=== PATIENT | female | born 1960 | race Hispanic/Latino ===

== ENCOUNTER 2019-12-04 21:59 | Observation (INO) | payer BC ==
[2019-12-04] MEDS ORDERED: SODIUM CHLORIDE 0.9% 1000 ML 1,000 ML IV ONE (22:27)
--- NOTE | 2019-12-04 22:32 | Emergency Department Report ---
HPI - General Chief Complaint: Syncope Time Seen by Provider: 12/04/19 22:15 - HPI HPI: This is a 59-year-old female who presents to the emergency department via EMS from home with the complaint of passing out just prior to presentation. Patient has been having 2 days of vaginal bleeding that started off very heavy but has slowed down/improved. She does have lower abdominal pain. Patient admits to feeling dizzy/lightheaded prior to passing out. She is unsure whether or not she hit her head but denies any headache. She denies any fever, vision change, slurred speech, numbness or paresthesias. 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 She has not undergone any type of chemotherapy or radiation. Otherwise she has a history of hypertension. She did not take anything, nor was given anything, for her symptoms prior to presentation. ED Review of Systems ROS: Stated complaint: SYNCOPAL EPISODE Other details as noted in HPI Comment: All other systems reviewed and negative Constitutional: weakness. denies: chills, fever Eyes: denies: eye pain, vision change ENT: denies: ear pain, throat pain Respiratory: denies: cough, shortness of breath Cardiovascular: syncope. denies: chest pain, palpitations Gastrointestinal: abdominal pain. denies: vomiting Genitourinary: other (vaginal bleeding). denies: dysuria, discharge Musculoskeletal: denies: back pain, arthralgia Skin: denies: rash, lesions Neurological: other (Syncope). denies: headache Physical Exam - Physical Exam Physical Exam: GENERAL: The patient is ill-appearing. HENT: Normocephalic. Atraumatic. EYES: Extraocular motions are intact. No nystagmus. NECK: Supple. Trachea is midline. CHEST/LUNGS: Clear to auscultation. There is no respiratory distress noted. HEART/CARDIOVASCULAR: Regular. There is mild to moderate tachycardia. There is no murmur. ABDOMEN: Abdomen is soft. Lower abdominal tenderness to palpation. No guarding. Patient has normal bowel sounds. SKIN: Skin is warm and dry. NEURO: The patient is awake, alert, and oriented. The patient is cooperative. The patient has no focal neurologic deficits. Normal speech. Cranial nerves II through XII grossly intact. No facial asymmetry. MUSCULOSKELETAL: There is no tenderness or deformity. There is no limitation range of motion. ED Course - Reevaluation(s) Reevaluation #1: 12/05/19 02:43 Labs 12/04/19 12/04/19 12/04/19 23:40 23:40 23:40 WBC 20.3 H RBC 3.19 L Hgb 7.3 L Hct 23.5 L MCV 74 L MCH 23 L MCHC 31 RDW 24.8 H Plt Count 781 H Lymph % (Auto) 6.1 L [place] % (Auto) 7.7 H Eos % (Auto) 0.0 Baso % (Auto) 0.4 Lymph # (Auto) 1.2 [place] # (Auto) 1.6 H Eos # (Auto) 0.0 Baso # (Auto) 0.1 Seg Neutrophils % 85.8 H Seg Neutrophils # 17.4 H PT 16.7 H INR 1.34 H Sodium 134 L Potassium 4.1 Chloride 95.9 L Carbon Dioxide 22 Anion Gap 20 BUN 23 H Creatinine 1.3 H Estimated GFR 42 BUN/Creatinine Ratio 18 Glucose 124 H Calcium 11.6 H Total Bilirubin 0.20 AST 16 ALT 10 Alkaline Phosphatase 245 H Troponin T Total Protein 7.0 Albumin 2.3 L Albumin/Globulin Ratio 0.5 TSH Plasma/Serum Alcohol Blood Type Antibody Screen Crossmatch 12/04/19 12/04/19 12/04/19 23:40 23:40 23:40 WBC RBC Hgb Hct MCV MCH MCHC RDW Plt Count Lymph % (Auto) [place] % (Auto) Eos % (Auto) Baso % (Auto) Lymph # (Auto) [place] # (Auto) Eos # (Auto) Baso # (Auto) Seg Neutrophils % Seg Neutrophils # PT INR Sodium Potassium Chloride Carbon Dioxide Anion Gap BUN Creatinine Estimated GFR BUN/Creatinine Ratio Glucose Calcium Total Bilirubin AST ALT Alkaline Phosphatase Troponin T < 0.010 Total Protein Albumin Albumin/Globulin Ratio TSH 0.490 Plasma/Serum Alcohol Blood Type O POSITIVE Antibody Screen Negative Crossmatch See Detail 12/04/19 23:40 WBC RBC Hgb Hct MCV MCH MCHC RDW Plt Count Lymph % (Auto) [place] % (Auto) Eos % (Auto) Baso % (Auto) Lymph # (Auto) [place] # (Auto) Eos # (Auto) Baso # (Auto) Seg Neutrophils % Seg Neutrophils # PT INR Sodium Potassium Chloride Carbon Dioxide Anion Gap BUN Creatinine Estimated GFR BUN/Creatinine Ratio Glucose Calcium Total Bilirubin AST ALT Alkaline Phosphatase Troponin T Total Protein Albumin Albumin/Globulin Ratio TSH Plasma/Serum Alcohol < 0.01 Blood Type Antibody Screen Crossmatch Reevaluation #2: 12/05/19 02:43 Vital Signs 12/04/19 12/04/19 12/05/19 22:10 23:30 00:00 Temperature 98.6 F Pulse Rate 103 H Respiratory 16 Rate Blood Pressure 117/90 124/92 Blood Pressure 103/80 [Left] O2 Sat by Pulse 98 98 Oximetry 12/05/19 12/05/19 12/05/19 00:30 01:00 02:05 Temperature Pulse Rate 125 H Respiratory 14 Rate Blood Pressure 116/90 120/89 Blood Pressure 109/74 [Left] O2 Sat by Pulse 99 99 98 Oximetry - EJ/Peripheral Line Arm R Time Out Performed: Yes Indications: nurses unable to establis Skin Cleansed in Sterile Fashion: Yes Size: 20 Dressing Placed: Tegaderm, tape Patient Tolerated Procedure: well ED Medical Decision Making - Lab Data Result diagrams: 12/04/19 23:40 12/04/19 23:40 - EKG Data -: EKG Interpreted by Sd EKG shows normal: sinus rhythm, axis, intervals, QRS complexes, ST-T waves Rate: tachycardia (123 bpm) - EKG Data When compared to previous EKG there are: previous EKG unavailable Interpretation: other (Sinus tachycardia at 123 bpm, normal axis, normal intervals. No ST elevation [place]) - Radiology Data Radiology results: report reviewed CT HEAD/BRAIN WO CON INDICATION / CLINICAL INFORMATION: Syncopal episode, lightheaded and dizziness. Hx of SENIOR NET ENGINEER cancer. TECHNIQUE: All CT scans at this location are performed using CT dose reduction for ALARA by means of automated exposure control. COMPARISON: None available. FINDINGS: There is mild generalized cortical atrophy. The ventricular system is normal in size and configuration. No focal lesion or mass effect is seen. There is no evidence of intracranial hemorrhage or major vessel occlusion. The calvarium is intact. The visualized paranasal sinuses and mastoid air cells are near. IMPRESSION: No acute abnormality. CT OF THE ABDOMEN AND PELVIS WITHOUT CONTRAST INDICATION / CLINICAL INFORMATION: Abdominal pain with vaginal bleeding. Patient states that she was diagnosed with uterine cancer and possible metastatic disease to the liver 3 months ago. TECHNIQUE: All CT scans at this location are performed using CT dose reduction for ALARA by means of automated exposure control. COMPARISON: 09/27/19. FINDINGS: ABDOMEN: There are multiple low density lesions scattered throughout the liver which have increased in size and number since the prior study. A 4.5 cm lesion in the inferior aspect of the right lobe of the liver is new. The gallbladder is surgically absent. The bile ducts, pancreas, spleen and adrenal glands are normal. There are multiple nonobstructive renal calculi bilaterally. There is a small hiatal hernia. I see no evidence of bowel obstruction, wall thickening or free air. There is no evidence of adenopathy. The lung bases are clear. PELVIS: The uterus is abnormal in appearance and contains one or more complex fat-containing masses which appear significantly larger than on the prior exam. The abnormality measures approximately 11 cm on the current study compared to 8.5 cm previously. There is no evidence of adnexal mass or free fluid. A normal appendix is present. There are scattered colonic diverticula without acute inflammation. I do not identify a hernia. There is mild spondylosis without osseous metastatic disease. IMPRESSION: 1. 1 or more confluent fat-containing masses in the uterus have increased in size and are suspicious for liposarcoma. 2. Metastatic disease involving the liver has increased. 3. Bilateral nonobstructive nephrolithiasis. - Medical Decision Making This patient presents to the emergency department after having a syncopal episode just prior to arrival. The patient is orthostatic positive from laying to sitting and was unable to stand up for full orthostatic vital signs. EKG shows sinus tachycardia but otherwise no ST elevation [place] or dysrhythmia. Patient's labs shows hemoglobin of 7.3, some renal insufficiency with a GFR of about 40, and a leukocytosis of about 20,000. Patient was given a liter of IV fluid, IV analgesia, and IV antiemetics. CT scan of the head does not show any bleed, shift, mass, ischemia, or any other acute process. CT scan of the a bdomen and pelvis shows some uterine masses, liver mass that is suspicious for metastatic disease. After a discussion with the hospitalist, the patient will be transfused 1 unit of packed red blood cells for symptomatic anemia. She has been accepted for admission by Dr Collier. Critical Care Time: Yes Critical care time in (mins) excluding proc time.: 35 Critical care attestation.: If time is entered above; I have spent that time in minutes in the direct care of this critically ill patient, excluding procedure time. Critical care time was spent on this patient in doing her initial evaluation, multiple reevaluation s, ordering and interpretation of labs and imaging, IV fluid resuscitation for her dehydration/volume depletion, ordering of packed red blood cells for transfusion, IV analgesia, multiple discussions with the patient. Critical Care Time: 35 minutes ED Disposition Clinical Impression: Symptomatic anemia, Liver metastasis, NIMCO (acute kidney injury), Dehydration Uterine cancer Qualifiers: Malignant neoplasm of uterus location: unspecified site of uterus Qualified Code(s): C55 - Malignant neoplasm of uterus, part unspecified Syncope Qualifiers: Syncope type: unspecified Qualified Code(s): R55 - Syncope and collapse Disposition: 09 OP ADMIT IP TO THIS HOSP Is pt being admited?: Yes Condition: Serious Time of Disposition: 02:11
--- NOTE | 2019-12-05 | XRay Report ---
ACUTE ABDOMINAL SERIES INDICATION / CLINICAL INFORMATION: Abdominal pain. COMPARISON: None available. FINDINGS: Upright and supine views of the abdomen demonstrate a prior cholecystectomy. There are bilateral clarisse l calculi. The bowel gas pattern is normal without evidence of obstruction, free air or mass effect. There is mild thoracolumbar scoliosis and spondylosis. The accompanying chest radiograph demonstrates a normal heart size and clear lungs. IMPRESSION: Bilateral nephrolithiasis. Signer Name: Darek Mai MD Signed: 12/04/2019 11:56 PM Workstation Name: [id number]
[2019-12-05 00:06] LABS: Hematocrit 23.5 % (30.3-42.9); Hemoglobin 7.3 gm/dl (10.1-14.3); Mean Corpuscular HGB Conc 31 % (30-34); Mean Corpuscular Volume 74 fl (79-97); Platelet Count 781 K/mm3 (140-440); Red Blood Count 3.19 M/mm3 (3.65-5.03)
[2019-12-05 00:18] LABS: Basophils # (Auto) 0.1 K/mm3 (0.0-0.1); Basophils % (Auto) 0.4 % (0.0-1.8); Lymphocytes # (Auto) 1.2 K/mm3 (1.2-5.4); Lymphocytes % (Auto) 6.1 % (13.4-35.0); Monocytes # (Auto) 1.6 K/mm3 (0.0-0.8); Monocytes % (Auto) 7.7 % (0.0-7.3); Red Cell Distribution Width 24.8 % (13.2-15.2)
[2019-12-05 00:22] LABS: INR 1.34 (0.87-1.13)
[2019-12-05 00:28] LABS: Albumin 2.3 g/dL (3.9-5); Calcium 11.6 mg/dL (8.4-10.2)
[2019-12-05] MEDS ORDERED: ONDANSETRON 4 MG/2 ML INJ IV ONE (00:42)
[2019-12-05] MEDS ORDERED: fentaNYL 100 MCG/2 ML INJ IV ONE (00:43)
--- NOTE | 2019-12-05 01:41 | Cat Scan Report ---
CT HEAD/BRAIN WO CON INDICATION / CLINICAL INFORMATION: Syncopal episode, lightheaded and dizziness. 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 TECHNIQUE: All CT scans at this location are performed using CT dose reduction for ALARA by means of automated e xposure control. COMPARISON: None available. FINDINGS: There is mild generalized cortical atrophy. The ventricular system is normal in size and configuratio n. No focal lesion or mass effect is seen. There is no evidence of intracranial hemorrhage or major v essel occlusion. The calvarium is intact. The visualized paranasal sinuses and mastoid air cells are near. IMPRESSION: No acute abnormality. Signer Name: Darek Mai MD Signed: 12/05/2019 1:37 AM Workstation Name: [id number]
--- NOTE | 2019-12-05 01:56 | Cat Scan Report ---
CT OF THE ABDOMEN AND PELVIS WITHOUT CONTRAST INDICATION / CLINICAL INFORMATION: Abdominal pain with vaginal bleeding. Patient states that she was diagnosed with uterine cancer and p ossible metastatic disease to the liver 3 months ago. TECHNIQUE: All CT scans at this location are performed using CT dose reduction for ALARA by means of automated e xposure control. COMPARISON: 09/27/19. FINDINGS: ABDOMEN: There are multiple low density lesions scattered throughout the liver which have increased i n size and number since the prior study. A 4.5 cm lesion in the inferior aspect of the right lobe of the liver is new. The gallbladder is surgically absent. The bile ducts, pancreas, spleen and adrenal glands are normal. There are multiple nonobstructive renal calculi bilaterally. There is a small hiat al hernia. I see no evidence of bowel obstruction, wall thickening or free air. There is no evidence of adenopathy. The lung bases are clear. PELVIS: The uterus is abnormal in appearance and contains one or more complex fat-containing masses w hich appear significantly larger than on the prior exam. The abnormality measures approximately 11 cm on the current study compared to 8.5 cm previously. There is no evidence of adnexal mass or free flu id. A normal appendix is present. There are scattered colonic diverticula without acute inflammation. I do not identify a hernia. There is mild spondylosis without osseous metastatic disease. IMPRESSION: 1. 1 or more confluent fat-containing masses in the uterus have increased in size and are suspicious for liposarcoma. 2. Metastatic disease involving the liver has increased. 3. Bilateral nonobstructive nephrolithiasis. Signer Name: Darek Mai MD Signed: 12/05/2019 1:51 AM Workstation Name: [id number]
[2019-12-05] MEDS ORDERED: SODIUM CHLORIDE 0.9% 1000 ML 1,000 ML IV ONE (02:00)
[2019-12-05] MEDS ORDERED: SODIUM CHLORIDE 0.9% 500 ML 500 ML IV ONE (02:10)
[2019-12-05] MEDS ORDERED: ACETAMINOPHEN 325 MG TAB PO PRN (02:44)
[2019-12-05] MEDS ORDERED: MAGNESIUM HYDROXIDE (MOM) ORAL LIQD UDC PO PRN (02:44)
--- NOTE | 2019-12-05 02:56 | History and Physical Report ---
History of Present Illness Date of examination: 12/05/19 Date of admission: 12/05/19 02:12 Chief complaint: Syncope History of present illness: 59-year-old female with significant past medical history of hypertension and recently diagnosed uterine cancer brought into the emergency room today via EMS after having a syncopal episode. Patient indicates that she has been having vaginal bleeding for the past 2 days. Bleeding has been heavy and occasionally has some blood clots. She has had some associated lower abdominal pain. She denies any fever or chills, no chest pain or shortness of breath, no nausea vomiting, no diarrhea. She however has been having some lightheadedness prior to having the syncopal episode. She denies any head injury and denies any headache. Patient was diagnosed with uterine cancer about a month ago and she is due for follow-up with oncologist at [facility]. She has not had any chemotherapy or radiation therapy. Work-up in the emergency room today reveals a hemoglobin of 7.3, she is also found to be dehydrated, leukocytosis of 20. CT of the abdomen and pelvis reveals:. 1 or more confluent fat-containing masses in the uterus have increased in size and are suspicious for liposarcoma. 2. Metastatic disease involving the liver has increased. 3. Bilateral nonobstructive nephrolithiasis. Patient has been admitted for symptomatic anemia, NIMCO and UTI. Past History Past Medical History: hypertension, other (Uterine ca.) Past Surgical History: No surgical history Social history: no significant social history Family history: no significant family history Medications and Allergies Allergies Allergy/AdvReac Type Severity Reaction Status Date / Time Sulfa (Sulfonamide Allergy Itching Verified 12/04/19 22:59 Antibiotics) Home Medications Medication Instructions Recorded Confirmed Last Taken Type Metoprolol [Lopressor] 25 mg PO BID 12/05/19 12/05/19 12/04/19 History Ondansetron (Nf) [Zofran TAB] 8 mg PO DAILY PRN 12/05/19 12/05/19 12/04/19 History Oxycodone HCl [oxyCODONE] 10 mg PO Q8H PRN 12/05/19 12/05/19 12/04/19 History Active Meds: Active Medications Acetaminophen (Tylenol) 650 mg PO Q4H PRN PRN Reason: Pain MILD(1-3)/Fever >100.5/GOULD Sodium Chloride (Nacl 0.9% 1000 Ml) 1,000 mls @ 250 mls/hr IV ONCE ONE Stop: 12/05/19 05:59 Last Admin: 12/05/19 02:15 Dose: 250 mls/hr Documented by: Sodium Chloride (Nacl 0.9% 1000 Ml) 1,000 mls @ 75 mls/hr IV DIRECT WILLY Magnesium Hydroxide (Milk Of Magnesia) 30 ml PO Q4H PRN PRN Reason: Constipation Ondansetron HCl (Zofran) 4 mg IV Q8H PRN PRN Reason: Nausea And Vomiting Sodium Chloride (Sodium Chloride Flush Syringe 10 Ml) 10 ml IV BID WILLY Sodium Chloride (Sodium Chloride Flush Syringe 10 Ml) 10 ml IV PRN PRN PRN Reason: LINE FLUSH Review of Systems Constitutional: no fever, no chills Ears, nose, mouth and throat: no nasal congestion, no sore throat Cardiovascular: no chest pain, no palpitations Respiratory: no cough, no shortness of breath Gastrointestinal: abdominal pain, no nausea, no vomiting, no diarrhea Genitourinary Female: no pelvic pain, no flank pain, no dysuria Musculoskeletal: no neck pain, no low back pain Integumentary: no rash, no pruritis Neurological: syncope, no headaches, no confusion Psychiatric: no anxiety, no depression Exam - Constitutional Vitals: Temp Pulse Resp BP Pulse Ox 98.6 F 125 H 14 109/74 98 12/04/19 22:10 12/05/19 02:05 12/05/19 02:05 12/05/19 02:05 12/05/19 02:05 General appearance: Present: no acute distress, well-nourished, other (Moderate pallor) - EENT Eyes: Present: PERRL, EOM intact. Absent: scleral icterus ENT: hearing intact, clear oral mucosa, dentition normal - Neck Neck: Present: supple, normal ROM - Respiratory Respiratory effort: normal Respiratory: bilateral: CTA - Cardiovascular Rhythm: regular Heart Sounds: Present: S1 & S2. Absent: gallop, systolic murmur, diastolic murmur, rub - Extremities Extremities: no ischemia, pulses intact, pulses symmetrical, No edema, Full ROM Peripheral Pulses: within normal limits - Abdominal General gastrointestinal: Present: soft, non-tender, non-distended, normal bowel sounds - Integumentary Integumentary: Present: clear, warm, dry - Musculoskeletal Musculoskeletal: strength equal bilaterally - Psychiatric Psychiatric: appropriate mood/affect, intact judgment & insight, memory intact, cooperative - Neurologic Neurologic: CNII-XII intact, no focal deficits, moves all extremities HEART Score - HEART Score Troponin: Troponin T < 0.010 ng/mL (0.00-0.029) 12/04/19 23:40 Results - Labs CBC & Chem 7: 12/04/19 23:40 12/04/19 23:40 Labs: Abnormal lab results 12/04/19 12/04/19 12/04/19 Range/Units 23:40 23:40 23:40 WBC 20.3 H (4.5-11.0) K/mm3 RBC 3.19 L (3.65-5.03) M/mm3 Hgb 7.3 L (10.1-14.3) gm/dl Hct 23.5 L (30.3-42.9) % MCV 74 L (79-97) fl MCH 23 L (28-32) pg RDW 24.8 H (13.2-15.2) % Plt Count 781 H (140-440) K/mm3 Lymph % (Auto) 6.1 L (13.4-35.0) % [place] % (Auto) 7.7 H (0.0-7.3) % [place] # (Auto) 1.6 H (0.0-0.8) K/mm3 Seg Neutrophils % 85.8 H (40.0-70.0) % Seg Neutrophils # 17.4 H (1.8-7.7) K/mm3 PT 16.7 H (12.2-14.9) Sec. INR 1.34 H (0.87-1.13) Sodium 134 L (137-145) mmol/L Chloride 95.9 L (98-107) mmol/L BUN 23 H (7-17) mg/dL Creatinine 1.3 H (0.6-1.2) mg/dL Glucose 124 H (65-100) mg/dL Calcium 11.6 H (8.4-10.2) mg/dL Alkaline Phosphatase 245 H (35-129) units/L Albumin 2.3 L (3.9-5) g/dL Crossmatch 12/04/19 Range/Units 23:40 WBC (4.5-11.0) K/mm3 RBC (3.65-5.03) M/mm3 Hgb (10.1-14.3) gm/dl Hct (30.3-42.9) % MCV (79-97) fl MCH (28-32) pg RDW (13.2-15.2) % Plt Count (140-440) K/mm3 Lymph % (Auto) (13.4-35.0) % [place] % (Auto) (0.0-7.3) % [place] # (Auto) (0.0-0.8) K/mm3 Seg Neutrophils % (40.0-70.0) % Seg Neutrophils # (1.8-7.7) K/mm3 PT (12.2-14.9) Sec. INR (0.87-1.13) Sodium (137-145) mmol/L Chloride (98-107) mmol/L BUN (7-17) mg/dL Creatinine (0.6-1.2) mg/dL Glucose (65-100) mg/dL Calcium (8.4-10.2) mg/dL Alkaline Phosphatase (35-129) units/L Albumin (3.9-5) g/dL Crossmatch See Detail Assessment and Plan - Patient Problems (1) Syncope Current Visit: Yes Status: Acute Qualifiers: Syncope type: unspecified Qualified Code(s): R55 - Syncope and collapse Plan to address problem: Possibly secondary to the anemia. Will monitor vital signs closely. Patient was orthostatic in the emergency room. (2) Symptomatic anemia Current Visit: Yes Status: Acute Plan to address problem: Patient will be transfused with packed red blood cells as needed. Will monitor CBC. (3) Dehydration Current Visit: Yes Status: Acute Plan to address problem: Patient placed on IV fluid. Will monitor BUN and creatinine. (4) Uterine cancer Current Visit: Yes Status: Acute Qualifiers: Malignant neoplasm of uterus location: unspecified site of uterus Qualified Code(s): C55 - Malignant neoplasm of uterus, part unspecified Plan to address problem: We will place consult to VICE PRESIDENT [employer]ELOPMENT and will encourage patient to follow-up with oncology. (5) UTI (urinary tract infection) Current Visit: Yes Status: Acute Plan to address problem: Patient placed on empiric IV antibiotics. We await urine culture results. (6) DVT prophylaxis Current Visit: Yes Status: Acute Plan to address problem: Patient placed on sequential compression device. (7) Full code status Current Visit: Yes Status: Acute
[2019-12-05] MEDS: SODIUM CHLORIDE 0.9% 1000 ML 1,000 ML IV SCH ×2 (04:38→22:01)
[2019-12-05] MEDS: MORPHINE 2 MG/1 ML INJ IV PRN ×2 (04:38→09:01)
[2019-12-05] MEDS ORDERED: SODIUM CHLORIDE 0.9% 500 ML 500 ML ONE ×2 (05:11→05:27)
[2019-12-05 06:22] LABS: Bacteria,Urine 2+ /HPF (Negative); Bilirubin,Urine NEG (Negative); Blood,Urine LG (Negative); Color,Urine Amber (Yellow); Mucus,Urine 3+ /HPF
[2019-12-05 06:23] LABS: Protein,Urine >500 mg/dL (Negative); RBC,Urine > 182.0 /HPF (0.0-6.0)
[2019-12-05 06:25] LABS: Amphetamine Screen,Urine Negative; Benzodiazepines Screen,Urine Negative; Cannabinoid Screen,Urine Negative; Cocaine Screen,Urine Negative; Methadone Screen,Urine Negative
[2019-12-05 06:41] LABS: Opiate Screen,Urine Positive
[2019-12-05] MEDS: ONDANSETRON 4 MG/2 ML INJ IV PRN (09:01)
[2019-12-05] MEDS: cefTRIAXone/NS 1 GM/50 ML 1 GM/50 ML BAG IV SCH (09:02)
--- NOTE | 2019-12-05 10:18 | Progress Note ---
Assessment and Plan Assessment and plan: -- Syncope/autonomic instability Current Visit: Yes Status: Acute Plan to address problem: Possibly secondary to the anemia. Underlying disease process ,fall precautions Physical therapy as needed --Symptomatic anemia. Hb Current Visit: Yes Status: Acute Plan to address problem: Received 1 unit of PRBC transfusion Closely monitor H&H additional transfusion as needed --Dehydration Current Visit: Yes Status: Acute Plan to address problem: IV fluids and supportive care -- Uterine cancer Current Visit: Yes Status: Acute Plan to address problem: THERAPEUTIC MENTOR consulted, follow evaluation and recommendations --UTI (urinary tract infection) Current Visit: Yes Status: Acute Plan to address problem: Patient placed on empiric IV antibiotics. Follow cultures adjust antibiotics as needed --Severe protein calorie malnutrition; Current Visit: Yes Status: Acute . Plan to address problem: Secondary to underlying disease process Nutrition supplements and supportive care --DVT prophylaxis Current Visit: Yes Status: Acute Plan to address problem: SCDs, Lovenox -- Full code status Current Visit: Yes Status: Acute Closely monitor the patient and adjust management as needed Plan of care reviewed with the patient and her nurse History Interval history: I seen and examined the patient at the bedside this morning Patient's chart and medications reviewed Patient is chronically ill looking cachectic in mild distress Vital signs noted Hospitalist Physical - Constitutional Vitals: Temp Pulse Resp BP Pulse Ox 99.9 F H 113 H 20 122/77 94 12/05/19 08:12 12/05/19 08:55 12/05/19 10:03 12/05/19 08:55 12/05/19 08:13 General appearance: Present: mild distress, cachectic - EENT Eyes: Present: PERRL, EOM intact - Neck Neck: Present: supple, normal ROM - Respiratory Respiratory effort: normal Respiratory: bilateral: diminished, negative: rales, rhonchi, wheezing - Cardiovascular Rhythm: regular Heart Sounds: Present: S1 & S2 - Extremities Extremities: no ischemia, No edema - Abdominal General gastrointestinal: soft, non-tender, non-distended, normal bowel sounds - Integumentary Integumentary: Present: clear, warm - Psychiatric Psychiatric: appropriate mood/affect, cooperative - Neurologic Neurologic: moves all extremities HEART Score - HEART Score Troponin: Troponin T < 0.010 ng/mL (0.00-0.029) 12/04/19 23:40 Results - Labs CBC & Chem 7: 12/04/19 23:40 12/04/19 23:40 Labs: Laboratory Last Values WBC 20.3 K/mm3 (4.5-11.0) H 12/04/19 23:40 RBC 3.19 M/mm3 (3.65-5.03) L 12/04/19 23:40 Hgb 7.3 gm/dl (10.1-14.3) L 12/04/19 23:40 Hct 23.5 % (30.3-42.9) L 12/04/19 23:40 MCV 74 fl (79-97) L 12/04/19 23:40 MCH 23 pg (28-32) L 12/04/19 23:40 MCHC 31 % (30-34) 12/04/19 23:40 RDW 24.8 % (13.2-15.2) H 12/04/19 23:40 Plt Count 781 K/mm3 (140-440) H 12/04/19 23:40 Lymph % (Auto) 6.1 % (13.4-35.0) L 12/04/19 23:40 [place] % (Auto) 7.7 % (0.0-7.3) H 12/04/19 23:40 Eos % (Auto) 0.0 % (0.0-4.3) 12/04/19 23:40 Baso % (Auto) 0.4 % (0.0-1.8) 12/04/19 23:40 Lymph # (Auto) 1.2 K/mm3 (1.2-5.4) 12/04/19 23:40 [place] # (Auto) 1.6 K/mm3 (0.0-0.8) H 12/04/19 23:40 Eos # (Auto) 0.0 K/mm3 (0.0-0.4) 12/04/19 23:40 Baso # (Auto) 0.1 K/mm3 (0.0-0.1) 12/04/19 23:40 Seg Neutrophils % 85.8 % (40.0-70.0) H 12/04/19 23:40 Seg Neutrophils # 17.4 K/mm3 (1.8-7.7) H 12/04/19 23:40 PT 16.7 Sec. (12.2-14.9) H 12/04/19 23:40 INR 1.34 (0.87-1.13) H 12/04/19 23:40 Sodium 134 mmol/L (137-145) L 12/04/19 23:40 Potassium 4.1 mmol/L (3.6-5.0) 12/04/19 23:40 Chloride 95.9 mmol/L (98-107) L 12/04/19 23:40 Carbon Dioxide 22 mmol/L (22-30) 12/04/19 23:40 Anion Gap 20 mmol/L 12/04/19 23:40 BUN 23 mg/dL (7-17) H 12/04/19 23:40 Creatinine 1.3 mg/dL (0.6-1.2) H 12/04/19 23:40 Estimated GFR 42 ml/min 12/04/19 23:40 BUN/Creatinine Ratio 18 % 12/04/19 23:40 Glucose 124 mg/dL (65-100) H 12/04/19 23:40 Calcium 11.6 mg/dL (8.4-10.2) H 12/04/19 23:40 Total Bilirubin 0.20 mg/dL (0.1-1.2) 12/04/19 23:40 AST 16 units/L (5-40) 12/04/19 23:40 ALT 10 units/L (7-56) 12/04/19 23:40 Alkaline Phosphatase 245 units/L (35-129) H 12/04/19 23:40 Troponin T < 0.010 ng/mL (0.00-0.029) 12/04/19 23:40 Total Protein 7.0 g/dL (6.3-8.2) 12/04/19 23:40 Albumin 2.3 g/dL (3.9-5) L 12/04/19 23:40 Albumin/Globulin Ratio 0.5 % 12/04/19 23:40 TSH 0.490 mlU/mL (0.270-4.200) 12/04/19 23:40 Urine Color Jami (Yellow) 12/04/19 Unknown Urine Turbidity Cloudy (Clear) 12/04/19 Unknown Urine pH 5.0 (5.0-7.0) 12/04/19 Unknown Ur Specific [place] 1.022 (1.003-1.030) 12/04/19 Unknown Urine Protein >500 mg/dL (Negative) 12/04/19 Unknown Urine Glucose (UA) Neg mg/dL (Negative) 12/04/19 Unknown Urine Ketones Neg mg/dL (Negative) 12/04/19 Unknown Urine Blood Lg (Negative) 12/04/19 Unknown Urine Nitrite Neg (Negative) 12/04/19 Unknown Urine Bilirubin Neg (Negative) 12/04/19 Unknown Urine Urobilinogen 2.0 mg/dL (<2.0) 12/04/19 Unknown Ur Leukocyte Esterase Tr (Negative) 12/04/19 Unknown Urine WBC (Auto) 182.0 /HPF (0.0-6.0) H 12/04/19 Unknown Urine RBC (Auto) > 182.0 /HPF (0.0-6.0) 12/04/19 Unknown Urine Bacteria (Auto) 2+ /HPF (Negative) 12/04/19 Unknown Urine WBC Clumps 2+ /HPF 12/04/19 Unknown Urine Mucus 3+ /HPF 12/04/19 Unknown Urine Opiates Screen Positive 12/04/19 Unknown Urine Methadone Screen Negative 12/04/19 Unknown Ur Barbiturates Screen Negative 12/04/19 Unknown Ur Phencyclidine Scrn Negative 12/04/19 Unknown Ur Amphetamines Screen Negative 12/04/19 Unknown U Benzodiazepines Scrn Negative 12/04/19 Unknown Urine Cocaine Screen Negative 12/04/19 Unknown U Marijuana (THC) Screen Negative 12/04/19 Unknown Drugs of Abuse Note Disclamer 12/04/19 Unknown Plasma/Serum Alcohol < 0.01 % (0-0.07) 12/04/19 23:40 Blood Type O POSITIVE 12/04/19 23:40 Antibody Screen Negative 12/04/19 23:40 Crossmatch See Detail 12/04/19 23:40 Elder/IV: Voiding Method Bedpan IV Catheter Type [Left Wrist] INT / Saline Lock IV Catheter Type [Right Upper INT / Saline Lock arm] Active Medications - Current Medications Current Medications: Generic Name Dose Route Start Last Admin Trade Name Freq PRN Reason Stop Dose Admin Acetaminophen 650 mg 12/05/19 02:44 Tylenol PO Q4H PRN Pain MILD(1-3)/Fever >100.5/GOULD Sodium Chloride 1,000 mls @ 75 mls/hr 12/05/19 02:45 12/05/19 04:38 Nacl 0.9% 1000 Ml IV 75 mls/hr DIRECT WILLY Administration Ceftriaxone Sodium 1 gm in 50 mls @ 100 mls/hr 12/05/19 10:00 12/05/19 09:02 Rocephin/Ns 1 Gm/50 Ml IV 100 mls/hr Q24HR WILLY Administration Protocol Magnesium Hydroxide 30 ml 12/05/19 02:44 Milk Of Magnesia PO Q4H PRN Constipation Morphine Sulfate 2 mg 12/05/19 04:08 12/05/19 09:01 Morphine IV 2 mg Q4H PRN Administration Pain, Moderate (4-6) Ondansetron HCl 4 mg 12/05/19 02:44 12/05/19 09:01 Zofran IV 4 mg Q8H PRN Administration Nausea And Vomiting Sodium Chloride 10 ml 12/05/19 10:00 12/05/19 09:02 Sodium Chloride Flush Syringe 10 Ml IV 10 ml BID WILLY Administration Sodium Chloride 10 ml 12/05/19 02:44 Sodium Chloride Flush Syringe 10 Ml IV PRN PRN LINE FLUSH
[2019-12-05] MEDS ORDERED: NON-FORMULARY EACH (Oxycodone Hcl [Oxycodone] 10 MG) PO PRN (10:20)
[2019-12-05] MEDS: oxyCODONE 5 MG TAB PO PRN ×2 (11:39→20:26)
--- NOTE | 2019-12-05 17:04 | Consultation ---
History of Present Illness Consult date: 12/05/19 Reason for consult: menorrhagia History of present illness: This is a 60-year-old white female para 2-0-0-2 was called to see secondary to vaginal bleeding. Patient states that approximately 3 days ago she had 2 days of heavy bleeding states that the bleeding now is slow but she was worried senate admitted due to syncope with the finding of anemia. As in the admission note patient states that she was undergoing evaluation for her uterine cancer and was scheduled to see her oncologist who she could not remember the name. Patient is a very poor historian. But states her last Pap smear was 1 year ago and was normal. She also states that she has been on oral contraceptives until a few months ago. Past History Past Medical History: hypertension Past Surgical History: no surgical history PHOTO INTERN History: denies: abnormal PAP smear Medications and Allergies Allergies Allergy/AdvReac Type Severity Reaction Status Date / Time Sulfa (Sulfonamide Allergy Itching Verified 12/04/19 22:59 Antibiotics) Home Medications Medication Instructions Recorded Confirmed Last Taken Type Metoprolol [Lopressor] 25 mg PO BID 12/05/19 12/05/19 12/04/19 History Ondansetron (Nf) [Zofran TAB] 8 mg PO DAILY PRN 12/05/19 12/05/19 12/04/19 History Oxycodone HCl [oxyCODONE] 10 mg PO Q8H PRN 12/05/19 12/05/19 12/04/19 History Active Meds: Active Medications Acetaminophen (Tylenol) 650 mg PO Q4H PRN PRN Reason: Pain MILD(1-3)/Fever >100.5/[place]OULD Sodium Chloride (Nacl 0.9% 1000 Ml) 1,000 mls @ 75 mls/hr IV DIRECT WILLY Last Admin: 12/05/19 04:38 Dose: 75 mls/hr Documented by: Ceftriaxone Sodium (Rocephin/Ns 1 Gm/50 Ml) 1 gm in 50 mls @ 100 mls/hr IV Q24HR WILLY; Protocol Last Admin: 12/05/19 09:02 Dose: 100 mls/hr Documented by: Magnesium Hydroxide (Milk Of Magnesia) 30 ml PO Q4H PRN PRN Reason: Constipation Metoprolol Tartrate (Metoprolol) 25 mg PO BID WILLY Morphine Sulfate (Morphine) 2 mg IV Q4H PRN PRN Reason: Pain, Moderate (4-6) Last Admin: 12/05/19 09:01 Dose: 2 mg Documented by: Ondansetron HCl (Zofran) 4 mg IV Q8H PRN PRN Reason: Nausea And Vomiting Last Admin: 12/05/19 09:01 Dose: 4 mg Documented by: Oxycodone HCl (Roxicodone) 10 mg PO Q8H PRN PRN Reason: Pain, Moderate (4-6) Last Admin: 12/05/19 11:39 Dose: 10 mg Documented by: Sodium Chloride (Sodium Chloride Flush Syringe 10 Ml) 10 ml IV BID WILLY Last Admin: 12/05/19 09:02 Dose: 10 ml Documented by: Sodium Chloride (Sodium Chloride Flush Syringe 10 Ml) 10 ml IV PRN PRN PRN Reason: LINE FLUSH - Vital Signs Vital signs: Vital Signs Temp Pulse Resp BP Pulse Ox 98.6 F 103 H 14 103/80 98 12/04/19 22:10 12/04/19 22:10 12/04/19 22:10 12/04/19 22:10 12/04/19 22:10 Temp Pulse Resp BP Pulse Ox 98.5 F 110 H 20 123/84 100 12/05/19 15:23 12/05/19 15:23 12/05/19 15:23 12/05/19 15:23 12/05/19 15:23 - Physical Exam Abdomen: Positive: soft, tenderness (Slightly). Negative: guarding Genitourinary (Female): Positive: other (Deferred patient is fully clothed and states the bleeding is minimal) Results Result Diagrams: 12/04/19 23:40 12/04/19 23:40 Abnormal lab results 12/04/19 12/04/19 12/04/19 Range/Units 23:40 23:40 23:40 WBC 20.3 H (4.5-11.0) K/mm3 RBC 3.19 L (3.65-5.03) M/mm3 Hgb 7.3 L (10.1-14.3) gm/dl Hct 23.5 L (30.3-42.9) % MCV 74 L (79-97) fl MCH 23 L (28-32) pg RDW 24.8 H (13.2-15.2) % Plt Count 781 H (140-440) K/mm3 Lymph % (Auto) 6.1 L (13.4-35.0) % [place] % (Auto) 7.7 H (0.0-7.3) % [place] # (Auto) 1.6 H (0.0-0.8) K/mm3 Seg Neutrophils % 85.8 H (40.0-70.0) % Seg Neutrophils # 17.4 H (1.8-7.7) K/mm3 PT 16.7 H (12.2-14.9) Sec. INR 1.34 H (0.87-1.13) Sodium 134 L (137-145) mmol/L Chloride 95.9 L (98-107) mmol/L BUN 23 H (7-17) mg/dL Creatinine 1.3 H (0.6-1.2) mg/dL Glucose 124 H (65-100) mg/dL Calcium 11.6 H (8.4-10.2) mg/dL Alkaline Phosphatase 245 H (35-129) units/L Albumin 2.3 L (3.9-5) g/dL Urine WBC (Auto) (0.0-6.0) /HPF Crossmatch 12/04/19 12/04/19 Range/Units 23:40 Unknown WBC (4.5-11.0) K/mm3 RBC (3.65-5.03) M/mm3 Hgb (10.1-14.3) gm/dl Hct (30.3-42.9) % MCV (79-97) fl MCH (28-32) pg RDW (13.2-15.2) % Plt Count (140-440) K/mm3 Lymph % (Auto) (13.4-35.0) % [place] % (Auto) (0.0-7.3) % [place] # (Auto) (0.0-0.8) K/mm3 Seg Neutrophils % (40.0-70.0) % Seg Neutrophils # (1.8-7.7) K/mm3 PT (12.2-14.9) Sec. INR (0.87-1.13) Sodium (137-145) mmol/L Chloride (98-107) mmol/L BUN (7-17) mg/dL Creatinine (0.6-1.2) mg/dL Glucose (65-100) mg/dL Calcium (8.4-10.2) mg/dL Alkaline Phosphatase (35-129) units/L Albumin (3.9-5) g/dL Urine WBC (Auto) 182.0 H (0.0-6.0) /HPF Crossmatch See Detail All other labs normal. CT scan - abdomen: report reviewed CT scan - pelvis: report reviewed Assessment and Plan - Patient Problems (1) Uterine cancer Current Visit: Yes Status: Acute Qualifiers: Malignant neoplasm of uterus location: unspecified site of uterus Qualified Code(s): C55 - Malignant neoplasm of uterus, part unspecified Plan to address problem: Initially saw the patient approximately 1300 today and patient did not tell me or her primary care physician was Dr. Jose Armando Romeo. I have chest been able to follow-up with Dr. Romeo on given history. He states that the patient was seen in doctors to do and was scheduled to follow-up with her for this diagnosis of malignancy. He said he will try to obtain a more detailed history from her hospitalization because of confusion, possible primary site of her malignancy. Patient with minimal bleeding now. Agree with transfusion. Patient will be needing to follow-up with a oncologist. If this is indeed a PHOTO INTERN source of her malignancy, [facility] presently does not have a PHOTO INTERN oncologist on staff and the patient will need to be referred to one. (2) Liver metastasis Current Visit: Yes Status: Acute Plan to address problem: Dr. Romeo was under impression that patient may have a primary liver cancer and will contact and get information from doctors to do as in the possibility of treatment for liver cancer. I have paged the hospitalist but has not gotten a return call. Will give detailed information when call received.
[2019-12-05] MEDS: METOPROLOL TARTRATE 25 MG TAB PO SCH (21:55)
[2019-12-06 05:47] LABS: Calcium 11.3 mg/dL (8.4-10.2); Hematocrit 24.8 % (30.3-42.9); Hemoglobin 7.7 gm/dl (10.1-14.3); Mean Corpuscular HGB Conc 31 % (30-34); Mean Corpuscular Volume 78 fl (79-97); Platelet Count 557 K/mm3 (140-440); Red Blood Count 3.19 M/mm3 (3.65-5.03)
[2019-12-06 05:52] LABS: Eosinophils % (Auto) 0.2 % (0.0-4.3); Lymphocytes % (Auto) 11.2 % (13.4-35.0); Monocytes % (Auto) 9.8 % (0.0-7.3); Red Cell Distribution Width 23.3 % (13.2-15.2)
[2019-12-06 05:53] LABS: Basophils % (Auto) 0.3 % (0.0-1.8); Lymphocytes # (Auto) 1.6 K/mm3 (1.2-5.4); Monocytes # (Auto) 1.4 K/mm3 (0.0-0.8)
[2019-12-06 05:55] LABS: INR 1.33 (0.87-1.13)
[2019-12-06] MEDS: ONDANSETRON 4 MG/2 ML INJ IV PRN ×2 (08:07→15:06)
[2019-12-06] MEDS: oxyCODONE 5 MG TAB PO PRN ×2 (08:08→21:34)
[2019-12-06] MEDS: cefTRIAXone/NS 1 GM/50 ML 1 GM/50 ML BAG IV SCH (09:13)
[2019-12-06] MEDS: METOPROLOL TARTRATE 25 MG TAB PO SCH ×2 (09:14→21:34)
[2019-12-06] MEDS: MORPHINE 2 MG/1 ML INJ IV PRN (13:21)
--- NOTE | 2019-12-06 15:42 | Progress Note ---
Assessment and Plan Assessment and plan: -- Syncope/autonomic instability Current Visit: Yes Status: Acute Plan to address problem: Possibly secondary to the anemia. Underlying disease process ,fall precautions Physical therapy as needed --Symptomatic anemia. Hb Current Visit: Yes Status: Acute Plan to address problem: Received 1 unit of PRBC transfusion Closely monitor H&H additional transfusion as needed --Dehydration Current Visit: Yes Status: Acute Plan to address problem: IV fluids and supportive care -- Uterine cancer Current Visit: Yes Status: Acute Plan to address problem: BLAST FURNACE AUXILIARIES SUPERVISOR consulted, follow evaluation and recommendations --UTI (urinary tract infection) Current Visit: Yes Status: Acute Plan to address problem: Patient placed on empiric IV antibiotics. Follow cultures adjust antibiotics as needed --Severe protein calorie malnutrition; Current Visit: Yes Status: Acute . Plan to address problem: Secondary to underlying disease process Nutrition supplements and supportive care --DVT prophylaxis Current Visit: Yes Status: Acute Plan to address problem: SCDs, Lovenox -- Full code status Current Visit: Yes Status: Acute Closely monitor the patient and adjust management as needed Plan of care reviewed with the patient and her nurse Hospitalist Physical - Constitutional Vitals: Temp Pulse Resp BP Pulse Ox 99.9 F H 85 20 115/74 96 12/06/19 11:59 12/06/19 11:59 12/06/19 11:59 12/06/19 11:59 12/06/19 11:59 General appearance: Present: mild distress, cachectic HEART Score - HEART Score Troponin: Troponin T < 0.010 ng/mL (0.00-0.029) 12/04/19 23:40 Results - Labs CBC & Chem 7: 12/06/19 04:54 12/06/19 04:54 Labs: Laboratory Last Values WBC 14.0 K/mm3 (4.5-11.0) H 12/06/19 04:54 RBC 3.19 M/mm3 (3.65-5.03) L 12/06/19 04:54 Hgb 7.7 gm/dl (10.1-14.3) L 12/06/19 04:54 Hct 24.8 % (30.3-42.9) L 12/06/19 04:54 MCV 78 fl (79-97) L 12/06/19 04:54 MCH 24 pg (28-32) L 12/06/19 04:54 MCHC 31 % (30-34) 12/06/19 04:54 RDW 23.3 % (13.2-15.2) H 12/06/19 04:54 Plt Count 557 K/mm3 (140-440) H 12/06/19 04:54 Lymph % (Auto) 11.2 % (13.4-35.0) L 12/06/19 04:54 [place] % (Auto) 9.8 % (0.0-7.3) H 12/06/19 04:54 Eos % (Auto) 0.2 % (0.0-4.3) 12/06/19 04:54 Baso % (Auto) 0.3 % (0.0-1.8) 12/06/19 04:54 Lymph # (Auto) 1.6 K/mm3 (1.2-5.4) 12/06/19 04:54 [place] # (Auto) 1.4 K/mm3 (0.0-0.8) H 12/06/19 04:54 Eos # (Auto) 0.0 K/mm3 (0.0-0.4) 12/06/19 04:54 Baso # (Auto) 0.0 K/mm3 (0.0-0.1) 12/06/19 04:54 Seg Neutrophils % 78.5 % (40.0-70.0) H 12/06/19 04:54 Seg Neutrophils # 11.0 K/mm3 (1.8-7.7) H 12/06/19 04:54 PT 16.6 Sec. (12.2-14.9) H 12/06/19 04:54 INR 1.33 (0.87-1.13) H 12/06/19 04:54 Sodium 136 mmol/L (137-145) L 12/06/19 04:54 Potassium 3.7 mmol/L (3.6-5.0) 12/06/19 04:54 Chloride 100.4 mmol/L (98-107) 12/06/19 04:54 Carbon Dioxide 20 mmol/L (22-30) L 12/06/19 04:54 Anion Gap 19 mmol/L 12/06/19 04:54 BUN 22 mg/dL (7-17) H 12/06/19 04:54 Creatinine 1.1 mg/dL (0.6-1.2) 12/06/19 04:54 Estimated GFR 51 ml/min 12/06/19 04:54 BUN/Creatinine Ratio 20 % 12/06/19 04:54 Glucose 73 mg/dL (65-100) 12/06/19 04:54 Calcium 11.3 mg/dL (8.4-10.2) H 12/06/19 04:54 Magnesium 1.90 mg/dL (1.7-2.3) 12/06/19 04:54 Total Bilirubin 0.20 mg/dL (0.1-1.2) 12/04/19 23:40 AST 16 units/L (5-40) 12/04/19 23:40 ALT 10 units/L (7-56) 12/04/19 23:40 Alkaline Phosphatase 245 units/L (35-129) H 12/04/19 23:40 Troponin T < 0.010 ng/mL (0.00-0.029) 12/04/19 23:40 Total Protein 7.0 g/dL (6.3-8.2) 12/04/19 23:40 Albumin 2.3 g/dL (3.9-5) L 12/04/19 23:40 Albumin/Globulin Ratio 0.5 % 12/04/19 23:40 TSH 0.490 mlU/mL (0.270-4.200) 12/04/19 23:40 Urine Color [place]ami (Yellow) 12/04/19 Unknown Urine Turbidity Cloudy (Clear) 12/04/19 Unknown Urine pH 5.0 (5.0-7.0) 12/04/19 Unknown Ur Specific [place] 1.022 (1.003-1.030) 12/04/19 Unknown Urine Protein >500 mg/dL (Negative) 12/04/19 Unknown Urine Glucose (UA) Neg mg/dL (Negative) 12/04/19 Unknown Urine Ketones Neg mg/dL (Negative) 12/04/19 Unknown Urine Blood Lg (Negative) 12/04/19 Unknown Urine Nitrite Neg (Negative) 12/04/19 Unknown Urine Bilirubin Neg (Negative) 12/04/19 Unknown Urine Urobilinogen 2.0 mg/dL (<2.0) 12/04/19 Unknown Ur Leukocyte Esterase Tr (Negative) 12/04/19 Unknown Urine WBC (Auto) 182.0 /HPF (0.0-6.0) H 12/04/19 Unknown Urine RBC (Auto) > 182.0 /HPF (0.0-6.0) 12/04/19 Unknown Urine Bacteria (Auto) 2+ /HPF (Negative) 12/04/19 Unknown Urine WBC Clumps 2+ /HPF 12/04/19 Unknown Urine Mucus 3+ /HPF 12/04/19 Unknown Urine Opiates Screen Positive 12/04/19 Unknown Urine Methadone Screen Negative 12/04/19 Unknown Ur Barbiturates Screen Negative 12/04/19 Unknown Ur Phencyclidine Scrn Negative 12/04/19 Unknown Ur Amphetamines Screen Negative 12/04/19 Unknown U Benzodiazepines Scrn Negative 12/04/19 Unknown Urine Cocaine Screen Negative 12/04/19 Unknown U Marijuana (THC) Screen Negative 12/04/19 Unknown Drugs of Abuse Note Disclamer 12/04/19 Unknown Plasma/Serum Alcohol < 0.01 % (0-0.07) 12/04/19 23:40 Blood Type O POSITIVE 12/04/19 23:40 Antibody Screen Negative 12/04/19 23:40 Crossmatch See Detail 12/04/19 23:40 Elder/IV: Voiding Method Bedpan IV Catheter Type [Left Wrist] INT / Saline Lock IV Catheter Type [Right Upper INT / Saline Lock arm] Active Medications - Current Medications Current Medications: Generic Name Dose Route Start Last Admin Trade Name Freq PRN Reason Stop Dose Admin Acetaminophen 650 mg 12/05/19 02:44 Tylenol PO Q4H PRN Pain MILD(1-3)/Fever >100.5/[place] Sodium Chloride 1,000 mls @ 75 mls/hr 12/05/19 02:45 12/05/19 22:01 Nacl 0.9% 1000 Ml IV 75 mls/hr DIRECT WILLY Administration Ceftriaxone Sodium 1 gm in 50 mls @ 100 mls/hr 12/05/19 10:00 12/06/19 09:13 Rocephin/Ns 1 Gm/50 Ml IV 100 mls/hr Q24HR WILLY Administration Protocol Magnesium Hydroxide 30 ml 12/05/19 02:44 Milk Of Magnesia PO Q4H PRN Constipation Metoprolol Tartrate 25 mg 12/05/19 22:00 12/06/19 09:14 Metoprolol PO 25 mg BID WILLY Administration Morphine Sulfate 2 mg 12/05/19 04:08 12/06/19 13:21 Morphine IV 2 mg Q4H PRN Administration Pain, Moderate (4-6) Ondansetron HCl 4 mg 12/06/19 15:00 12/06/19 15:06 Zofran IV 4 mg Q4H PRN Administration Nausea Oxycodone HCl 10 mg 12/05/19 10:35 12/06/19 08:08 Roxicodone PO 10 mg Q8H PRN Administration Pain, Moderate (4-6) Sodium Chloride 10 ml 12/05/19 10:00 12/06/19 09:12 Sodium Chloride Flush Syringe 10 Ml IV 10 ml BID WILLY Administration Sodium Chloride 10 ml 12/05/19 02:44 Sodium Chloride Flush Syringe 10 Ml IV PRN PRN LINE FLUSH Nutrition/Malnutrition Assess - Dietary Evaluation Nutrition/Malnutrition Findings: Nutrition Notes Start: 12/05/19 10:35 Freq: Status: Active Protocol: Document 12/05/19 10:36 MANNY (Rec: 12/05/19 10:52 MANNY [id number]) Co-Sign 12/05/19 10:36 LM Nutrition Notes Need for Assessment generated from: MD 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 Pt reports N /V/D and poor appetite. Pt states 0% intakes x1.5 weeks d /t abdominal pain. Burn Absent Trauma Absent GI Symptoms Nausea,Vomiting,Diarrhea Food Allergy No Current % PO Negligible Minimum of two criteria Yes Energy Intake (severe) < or equal to 50% Estimated Energy Requirement > or equal to 5 days Interpretation of Weight Loss (severe) >10% in 6 months #2 Nutrition Diagnosis Inadequate oral intake Etiology poor appetite, abdominal pain As Evidenced by Signs and Symptoms pt consuming 0% meals/ONS #1 Nutrition Diagnosis Malnutrition Etiology poor appetite, abdominal pain As Evidenced by Signs and Symptoms <50% EER >5 days, >10% wt loss in 6 months Is patient on ventilator? No Is Patient Ambulatory and/or Out of Bed Yes REE-([facility]-ambulatory/OOB) [ [id number] [id number]] Calculation Used for Recommendations [facility] Additional Notes Pro: 87-109 g (1.2-1.5 g/kg) Fluid: 1 ml/kcal Nutrition Intervention Change Diet Order: Continue regular diet Goal #1 Meet at least 75% energy and protein needs via PO intakes Anticipated Discharge Needs: Regular diet Follow-Up By: 12/07/19 Additional Comments F/U for intakes
[2019-12-07] MEDS: SODIUM CHLORIDE 0.9% 1000 ML 1,000 ML IV SCH (05:47)
[2019-12-07] MEDS: oxyCODONE 5 MG TAB PO PRN ×2 (07:06→14:34)
--- NOTE | 2019-12-07 09:19 | Progress Note ---
History Interval history: No new issues overnight. Hospitalist Physical - Constitutional Vitals: Temp Pulse Resp BP Pulse Ox 98.0 F 78 20 128/75 93 12/07/19 08:13 12/07/19 08:13 12/07/19 08:13 12/07/19 08:13 12/07/19 08:13 General appearance: Present: mild distress, cachectic - EENT Eyes: Present: PERRL, EOM intact ENT: hearing intact, clear oral mucosa, dentition normal - Neck Neck: Present: supple, normal ROM - Respiratory Respiratory effort: normal Respiratory: bilateral: CTA - Cardiovascular Rhythm: regular Heart Sounds: Present: S1 & S2. Absent: gallop, rub - Extremities Extremities: no ischemia, No edema, Full ROM - Abdominal General gastrointestinal: soft, non-tender, non-distended, normal bowel sounds - Integumentary Integumentary: Present: clear, warm, dry - Neurologic Neurologic: CNII-XII intact, moves all extremities HEART Score - HEART Score Troponin: Troponin T < 0.010 ng/mL (0.00-0.029) 12/04/19 23:40 Results - Labs CBC & Chem 7: 12/06/19 04:54 12/06/19 04:54 Labs: Laboratory Last Values WBC 14.0 K/mm3 (4.5-11.0) H 12/06/19 04:54 RBC 3.19 M/mm3 (3.65-5.03) L 12/06/19 04:54 Hgb 7.7 gm/dl (10.1-14.3) L 12/06/19 04:54 Hct 24.8 % (30.3-42.9) L 12/06/19 04:54 MCV 78 fl (79-97) L 12/06/19 04:54 MCH 24 pg (28-32) L 12/06/19 04:54 MCHC 31 % (30-34) 12/06/19 04:54 RDW 23.3 % (13.2-15.2) H 12/06/19 04:54 Plt Count 557 K/mm3 (140-440) H 12/06/19 04:54 Lymph % (Auto) 11.2 % (13.4-35.0) L 12/06/19 04:54 [place] % (Auto) 9.8 % (0.0-7.3) H 12/06/19 04:54 Eos % (Auto) 0.2 % (0.0-4.3) 12/06/19 04:54 Baso % (Auto) 0.3 % (0.0-1.8) 12/06/19 04:54 Lymph # (Auto) 1.6 K/mm3 (1.2-5.4) 12/06/19 04:54 [place] # (Auto) 1.4 K/mm3 (0.0-0.8) H 12/06/19 04:54 Eos # (Auto) 0.0 K/mm3 (0.0-0.4) 12/06/19 04:54 Baso # (Auto) 0.0 K/mm3 (0.0-0.1) 12/06/19 04:54 Seg Neutrophils % 78.5 % (40.0-70.0) H 12/06/19 04:54 Seg Neutrophils # 11.0 K/mm3 (1.8-7.7) H 12/06/19 04:54 PT 16.6 Sec. (12.2-14.9) H 12/06/19 04:54 INR 1.33 (0.87-1.13) H 12/06/19 04:54 Sodium 136 mmol/L (137-145) L 12/06/19 04:54 Potassium 3.7 mmol/L (3.6-5.0) 12/06/19 04:54 Chloride 100.4 mmol/L (98-107) 12/06/19 04:54 Carbon Dioxide 20 mmol/L (22-30) L 12/06/19 04:54 Anion Gap 19 mmol/L 12/06/19 04:54 BUN 22 mg/dL (7-17) H 12/06/19 04:54 Creatinine 1.1 mg/dL (0.6-1.2) 12/06/19 04:54 Estimated GFR 51 ml/min 12/06/19 04:54 BUN/Creatinine Ratio 20 % 12/06/19 04:54 Glucose 73 mg/dL (65-100) 12/06/19 04:54 Calcium 11.3 mg/dL (8.4-10.2) H 12/06/19 04:54 Magnesium 1.90 mg/dL (1.7-2.3) 12/06/19 04:54 Total Bilirubin 0.20 mg/dL (0.1-1.2) 12/04/19 23:40 AST 16 units/L (5-40) 12/04/19 23:40 ALT 10 units/L (7-56) 12/04/19 23:40 Alkaline Phosphatase 245 units/L (35-129) H 12/04/19 23:40 Troponin T < 0.010 ng/mL (0.00-0.029) 12/04/19 23:40 Total Protein 7.0 g/dL (6.3-8.2) 12/04/19 23:40 Albumin 2.3 g/dL (3.9-5) L 12/04/19 23:40 Albumin/Globulin Ratio 0.5 % 12/04/19 23:40 TSH 0.490 mlU/mL (0.270-4.200) 12/04/19 23:40 Urine Color Jami (Yellow) 12/04/19 Unknown Urine Turbidity Cloudy (Clear) 12/04/19 Unknown Urine pH 5.0 (5.0-7.0) 12/04/19 Unknown Ur Specific [place] 1.022 (1.003-1.030) 12/04/19 Unknown Urine Protein >500 mg/dL (Negative) 12/04/19 Unknown Urine Glucose (UA) Neg mg/dL (Negative) 12/04/19 Unknown Urine Ketones Neg mg/dL (Negative) 12/04/19 Unknown Urine Blood Lg (Negative) 12/04/19 Unknown Urine Nitrite Neg (Negative) 12/04/19 Unknown Urine Bilirubin Neg (Negative) 12/04/19 Unknown Urine Urobilinogen 2.0 mg/dL (<2.0) 12/04/19 Unknown Ur Leukocyte Esterase Tr (Negative) 12/04/19 Unknown Urine WBC (Auto) 182.0 /HPF (0.0-6.0) H 12/04/19 Unknown Urine RBC (Auto) > 182.0 /HPF (0.0-6.0) 12/04/19 Unknown Urine Bacteria (Auto) 2+ /HPF (Negative) 12/04/19 Unknown Urine WBC Clumps 2+ /HPF 12/04/19 Unknown Urine Mucus 3+ /HPF 12/04/19 Unknown Nasal Screen MRSA (PCR) Positive (Negative) 12/05/19 Unknown Urine Opiates Screen Positive 12/04/19 Unknown Urine Methadone Screen Negative 12/04/19 Unknown Ur Barbiturates Screen Negative 12/04/19 Unknown Ur Phencyclidine Scrn Negative 12/04/19 Unknown Ur Amphetamines Screen Negative 12/04/19 Unknown U Benzodiazepines Scrn Negative 12/04/19 Unknown Urine Cocaine Screen Negative 12/04/19 Unknown U Marijuana (THC) Screen Negative 12/04/19 Unknown Drugs of Abuse Note Disclamer 12/04/19 Unknown Plasma/Serum Alcohol < 0.01 % (0-0.07) 12/04/19 23:40 Blood Type O POSITIVE 12/04/19 23:40 Antibody Screen Negative 12/04/19 23:40 Crossmatch See Detail 12/04/19 23:40 Elder/IV: Voiding Method Toilet IV Catheter Type [Right INT / Saline Lock Forearm] IV Catheter Type [Left Wrist] INT / Saline Lock IV Catheter Type [Right Upper INT / Saline Lock arm] Active Medications - Current Medications Current Medications: Generic Name Dose Route Start Last Admin Trade Name Freq PRN Reason Stop Dose Admin Acetaminophen 650 mg 12/05/19 02:44 Tylenol PO Q4H PRN Pain MILD(1-3)/Fever >100.5/OGULD Sodium Chloride 1,000 mls @ 75 mls/hr 12/05/19 02:45 12/07/19 05:47 Nacl 0.9% 1000 Ml IV 75 mls/hr DIRECT WILLY Administration Ceftriaxone Sodium 1 gm in 50 mls @ 100 mls/hr 12/05/19 10:00 12/06/19 09:13 Rocephin/Ns 1 Gm/50 Ml IV 100 mls/hr Q24HR WILLY Administration Protocol Magnesium Hydroxide 30 ml 12/05/19 02:44 Milk Of Magnesia PO Q4H PRN Constipation Metoprolol Tartrate 25 mg 12/05/19 22:00 12/06/19 21:34 Metoprolol PO 25 mg BID WILLY Administration Morphine Sulfate 2 mg 12/05/19 04:08 12/06/19 13:21 Morphine IV 2 mg Q4H PRN Administration Pain, Moderate (4-6) Ondansetron HCl 4 mg 12/06/19 15:00 12/06/19 15:06 Zofran IV 4 mg Q4H PRN Administration Nausea Oxycodone HCl 10 mg 12/05/19 10:35 12/07/19 07:06 Roxicodone PO 10 mg Q8H PRN Administration Pain, Moderate (4-6) Sodium Chloride 10 ml 12/05/19 10:00 12/06/19 23:38 Sodium Chloride Flush Syringe 10 Ml IV Not Given BID WILLY Sodium Chloride 10 ml 12/05/19 02:44 Sodium Chloride Flush Syringe 10 Ml IV PRN PRN LINE FLUSH Nutrition/Malnutrition Assess - Dietary Evaluation Nutrition/Malnutrition Findings: Nutrition Notes Start: 12/05/19 10:35 Freq: Status: Active Protocol: Document 12/05/19 10:36 MANNY (Rec: 12/05/19 10:52 MANNY [id number]) Co-Sign 12/05/19 10:36 LM Nutrition Notes Need for Assessment generated from: 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 Pt reports N /V/D and poor appetite. Pt states 0% intakes x1.5 weeks d /t abdominal pain. Burn Absent Trauma Absent GI Symptoms Nausea,Vomiting,Diarrhea Food Allergy No Current % PO Negligible Minimum of two criteria Yes Energy Intake (severe) < or equal to 50% Estimated Energy Requirement > or equal to 5 days Interpretation of Weight Loss (severe) >10% in 6 months #2 Nutrition Diagnosis Inadequate oral intake Etiology poor appetite, abdominal pain As Evidenced by Signs and Symptoms pt consuming 0% meals/ONS #1 Nutrition Diagnosis Malnutrition Etiology poor appetite, abdominal pain As Evidenced by Signs and Symptoms <50% EER >5 days, >10% wt loss in 6 months Is patient on ventilator? No Is Patient Ambulatory and/or Out of Bed Yes REE-([facility]-ambulatory/OOB) [ 1735.019 [id number]] Calculation Used for Recommendations Kamryn Conti Additional Notes Pro: 87-109 g (1.2-1.5 g/kg) Fluid: 1 ml/kcal Nutrition Intervention Change Diet Order: Continue regular diet Goal #1 Meet at least 75% energy and protein needs via PO intakes Anticipated Discharge Needs: Regular diet Follow-Up By: 12/07/19 Additional Comments F/U for intakes
--- NOTE | 2019-12-07 09:24 | Discharge Summary ---
Providers - Providers Date of Admission: 12/05/19 02:12 Date of discharge: 12/07/19 Attending physician: SIOMARA CONRAD 12/05/19 02:50 Consult to Physician [CONS] Routine Comment: Consulting Provider: SHELLIE MOSQUEDA Physician Instructions: Reason For Exam: H/O UTERINE CA, VAGINAL BLEEDING 12/05/19 05:36 Consult to Dietitian/Nutrition [CONS] Routine Physician Instructions: Reason For Exam: Reason for Consult: Poor oral intake 12/06/19 20:42 Physical Therapy Evaluation and Treat [CONS] Routine Comment: Reason For Exam: General debility/unsteady gait/DC needs Primary care physician: ENTRY LEVEL BUYER Hospitalization Reason for admission: anemia Condition: Serious Hospital course: This is a 60-year-old white female para 2-0-0-2 was admitted for acute blood loss anemia and autonomic imbalance secondary to vaginal bleeding. 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 As in the admission note, patient states that she was undergoing evaluation for her uterine cancer and was scheduled to see her oncologist who she could not remember the name. Patient is a very poor historian but states her last Pap smear was 1 year ago and was normal. She also states that she has been on oral contraceptives until a few months ago. I spoke with her primary care physician Dr. Jose Armando Lofton who reports that the patient told him she needed evaluation for liver cancer. Dr. Lofton is attempting to obtain old records from [facility] for further clarification. Again, patient is a very poor historian is unable to give etiology or any information regarding her cancer. Patient received 1 unit of PRBCs with stabilization of her H&H. Therefore, patient will be discharged home and is to follow-up with Dr. Lofton and oncology as an outpatient. Dedicated discharge time 35 minutes Disposition: DC-01 TO HOME OR SELFCARE Time spent for discharge: 35 minutes - Discharge Diagnoses (1) Autonomic instability Status: Acute (2) Liver metastasis Status: Acute (3) Symptomatic anemia Status: Acute (4) Uterine cancer Status: Acute Qualifiers: Malignant neoplasm of uterus location: unspecified site of uterus Qualified Code(s): C55 - Malignant neoplasm of uterus, part unspecified Core Measure Documentation - Palliative Care Palliative Care/ Comfort Measures: Not Applicable - Core Measures Any of the following diagnoses?: none Exam - Constitutional Vitals: Temp Pulse Resp BP Pulse Ox 98.0 F 78 20 128/75 93 12/07/19 08:13 12/07/19 08:13 12/07/19 08:13 12/07/19 08:13 12/07/19 08:13 General appearance: Present: no acute distress, well-nourished - EENT Eyes: Present: PERRL ENT: hearing intact, clear oral mucosa - Neck Neck: Present: supple, normal ROM - Respiratory Respiratory effort: normal Respiratory: bilateral: CTA - Cardiovascular Heart Sounds: Present: S1 & S2. Absent: rub, click - Extremities Extremities: pulses symmetrical, No edema Peripheral Pulses: within normal limits - Abdominal General gastrointestinal: Present: soft, non-tender, non-distended, normal bowel sounds Female genitourinary: Present: normal - Integumentary Integumentary: Present: clear, warm, dry - Musculoskeletal Musculoskeletal: gait normal, strength equal bilaterally - Psychiatric Psychiatric: appropriate mood/affect, intact judgment & insight - Neurologic Neurologic: CNII-XII intact, moves all extremities Plan Activity: advance as tolerated Weight Bearing Status: Weight Bear as Tolerated Diet: regular Follow up with: PRIMARY CARE, [Primary Care Provider] - 3-5 Days MICA BAUER MD [Staff Physician] - 7 Days JOSE ARMANDO LOFTON MD [Staff Physician] - 7 Days YUSUF LOWERY MD [Staff Physician] - 7 Days Prescriptions: Oxycodone HCl [oxyCODONE] 10 mg PO Q8H PRN #10 PRN Reason: Pain Ondansetron (Nf) [Zofran TAB] 8 mg PO DAILY PRN #12 PRN Reason: Pain , Severe (7-10)
[2019-12-07] MEDS: cefTRIAXone/NS 1 GM/50 ML 1 GM/50 ML BAG IV SCH (09:45)
[2019-12-07] MEDS: METOPROLOL TARTRATE 25 MG TAB PO SCH (09:45)
[2019-12-07 14:19] VITALS: BP 137/80
[2019-12-07] MEDS: ONDANSETRON 4 MG/2 ML INJ IV PRN (14:34)
== END 2019-12-07 16:30 | disposition home or self-care (01) ==
LOC: ED 21:59 → 4A 12-05 02:12
PROVIDERS: ADMIT Internal Medicine Geriatric Medicine; ATTEND Hospitalist
DX: N17.9 Acute kidney failure, unspecified (principal); D64.9 Anemia, unspecified; N39.0 Urinary tract infection, site not specified; C78.7 Secondary malignant neoplasm of liver and intrahepatic bile duct; C55 Malignant neoplasm of uterus, part unspecified; I10 Essential (primary) hypertension; R55 Syncope and collapse; N20.0 Calculus of kidney; E86.0 Dehydration; D72.829 Elevated white blood cell count, unspecified; Z79.899 Other long term (current) drug therapy
CPT/HCPCS: 36415; 36430; 70450; 74022; 74176; 80048; 80053; 80307; 81001; 83735; 84443; 84484; 85025; 85610; 86850; 86900; 86901; 86920; 87641; 93005; 96361; 96365; 96366; 96375; 96376; 97162; 99291; G0378; J0696; J2270; J2405; J3010; J7030; P9016; 80320; G0480

== ENCOUNTER 2019-12-16 00:13 | Inpatient (IN) | payer BC ==
--- NOTE | 2019-12-16 00:44 | Emergency Department Report ---
- General Chief complaint: Syncope Stated complaint: WEAKNESS Time Seen by Provider: 12/16/19 00:38 Source: EMS Mode of arrival: Stretcher Limitations: No Limitations - History of Present Illness Initial comments: Chief complaint: "I feel like I am going to faint." HPI: This is a 59-year-old female with history of hypertension, anemia who presents via EMS after syncopal episode. Patient has had generalized malaise with nausea vomiting recently. She has had heavy vaginal bleeding of the last week. She was recently diagnosed with "uterine cancer". She has her first follow-up with specialist this upcoming week. She denies chest pain. Denies leg pain. She denies headache. She just feels faint. Patient has required blood transfusion on 2 previous occasions according to her report for anemia. CT abdomen pelvis without contrast obtained September 27, 2019 ordering physician was urologist Dr. Pulido. The CT revealed numerous bilateral nonobstructing renal stones. 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 Moderately severe sharp. Constant. She was referred to tank cleaner Dr. Manzano. She currently has vaginal bleeding at this time. Patient was recently discharged from the hospital. Her alternative medical record number is and [id number]. Account number for that encounter [id number] PCP Dr. Jose Armando Romeo MD Complaint: generalized weakness -: Gradual, week(s) (1) Location: generalized Severity: severe Consistency: constant Improves with: rest Worsens with: movement Associated Symptoms: syncope, other (Vaginal bleeding) - Related Data Allergies Allergy/AdvReac Type Severity Reaction Status Date / Time hydrocodone Allergy Rash Verified 12/16/19 02:07 Sulfa (Sulfonamide Allergy Rash Verified 12/16/19 02:06 Antibiotics) ED Review of Systems ROS: Stated complaint: WEAKNESS Other details as noted in HPI Comment: All other systems reviewed and negative Constitutional: denies: fever, malaise Respiratory: denies: cough Cardiovascular: syncope. denies: chest pain Gastrointestinal: nausea, vomiting. denies: abdominal pain ED Past Medical Hx - Past Medical History Previous Medical History?: Yes Hx Hypertension: Yes Hx Asthma: Yes - Surgical History Additional Surgical History: Cholecystectomy, tonsillectomy, urinary surgery - Social History Smoking Status: Never Smoker Substance Use Type: None ED Physical Exam - General Limitations: No Limitations General appearance: alert, in no apparent distress, other (Patient appears pale) - Head Head exam: Present: atraumatic, normocephalic - Eye Eye exam: Present: normal appearance - ENT ENT exam: Present: mucous membranes moist - Neck Neck exam: Present: normal inspection - Respiratory Respiratory exam: Present: normal lung sounds bilaterally. Absent: respiratory distress, wheezes, rales, rhonchi - Cardiovascular Cardiovascular Exam: Present: regular rate, normal rhythm, normal heart sounds. Absent: systolic murmur, diastolic murmur, rubs, gallop - GI/Abdominal GI/Abdominal exam: Present: soft, normal bowel sounds. Absent: distended, tenderness, guarding, rebound - Extremities Exam Extremities exam: Present: normal inspection - Neurological Exam Neurological exam: Present: alert, oriented X3 - Psychiatric Psychiatric exam: Present: normal affect, normal mood - Skin Skin exam: Present: warm, dry, intact, pallor. Absent: rash ED Course Vital Signs 12/16/19 12/16/19 12/16/19 00:42 00:44 00:45 Temperature 98.8 F Pulse Rate 125 H 122 H 123 H Respiratory 10 L 11 L Rate Blood Pressure 93/64 93/64 O2 Sat by Pulse 98 98 Oximetry 12/16/19 12/16/19 12/16/19 01:00 01:15 01:30 Temperature Pulse Rate 125 H 122 H 117 H Respiratory 14 13 17 Rate Blood Pressure 103/71 104/73 103/78 O2 Sat by Pulse 98 98 98 Oximetry 12/16/19 12/16/19 12/16/19 01:45 02:00 02:15 Temperature Pulse Rate 116 H 121 H 114 H Respiratory 18 12 9 L Rate Blood Pressure 113/72 104/80 101/63 O2 Sat by Pulse 99 Oximetry 12/16/19 12/16/19 12/16/19 02:30 02:45 03:00 Temperature Pulse Rate 114 H 112 H 108 H Respiratory 16 11 L 19 Rate Blood Pressure 92/64 98/63 91/56 O2 Sat by Pulse 100 100 Oximetry 12/16/19 12/16/19 12/16/19 03:22 03:30 03:45 Temperature Pulse Rate 112 H 110 H 111 H Respiratory 15 17 24 Rate Blood Pressure 91/56 103/71 105/69 O2 Sat by Pulse 99 97 Oximetry 12/16/19 12/16/19 12/16/19 04:00 04:15 04:30 Temperature Pulse Rate 115 H 117 H 111 H Respiratory 11 L 19 10 L Rate Blood Pressure 101/77 103/79 111/67 O2 Sat by Pulse 98 100 99 Oximetry - Reevaluation(s) Reevaluation #1: 12/16/19 00:59 Patient arrived hypotensive. Severe orthostatics with heart rate 133, blood pressure dropped to 83/56 with just sitting up. ED Medical Decision Making - Lab Data Result diagrams: 12/16/19 01:06 12/16/19 01:06 - EKG Data -: EKG Interpreted by [place] EKG shows normal: sinus rhythm, axis, intervals, QRS complexes, ST-T waves Rate: tachycardia - EKG Data Interpretation: normal EKG (excpet for tachycardia HR 120) - Radiology Data Radiology results: report reviewed CT abdomen pelvis w con INDICATION / CLINICAL INFORMATION: hypotension, orthostasis, possible sepsis. History of uterine cancer TECHNIQUE: Axial CT imaging of abdomen and pelvis was obtained with IV contrast. Coronal and sagittal reformatted imaging obtained and reviewed. All CT scans at this location are performed using CT dose reduction for [facility] by means of automated exposure control. COMPARISON: Prior CT abdomen/pelvis 12/05/2019 FINDINGS: CT abdomen with contrast demonstrates several masses scattered throughout the l iver consistent with metastases. The largest metastasis is subcapsular in location along the inferi or tip of the right hepatic lobe, measuring approximately 4 cm in diameter. This is grossly unchan ged from prior exam. Spleen, pancreas, and adrenal glands all appear unremarkable. Cholecystectomy. Bilateral nephrolithiasis is present as noted on prior exams. CT pelvis with contrast demonstrates normal appearance of the appendix. As noted on prior study, the uterus is enlarged with numerous fat-containing solid masses. Large mass appears to be bulging or prolapsing into the vagina with interval increase in size since the very recent study of 12/05/2019. Part of this apparent increase in size may be secondary to hemorrhage. No free fluid or free air is noted. No significant adenopathy identified. No additional findings of significance noted within the pelvis No significant osseous abnormality other than mild degenerative change. IMPRESSION: 1. In this patient with known uterine cancer, the uterus remains markedly enlarged and abnormal containing several masses. There is a large "mass" which appears to be bulging or prolapsing into the vagina measuring at least 7.7 cm in transverse diameter. It is possible that a portion of this mass is due to hemorrhage. Overall, this masslike area has increased in size since the scan performed on 12/05/2019. 2. Known hepatic metastases which are grossly stable in appearance. 3. Bilateral nephrolithiasis. - Medical Decision Making This is a 59-year-old female with uterine masses presumably to be neoplasm. She also has liver metastasis. It does not appear that patient has a primary source of malignancy. Patient was recently discharged from the hospital. Her alternative medical record number is and [id number]. Account number for that encounter [id number] After speaking with delivery consultant,, I realized that patient had recent CT scan on December 04 that revealed 1 or more fat-containing masses in the uterus which is complex in size and suspicious for liposarcoma. Metastatic disease involving the liver has increased. Hemoglobin largely unchanged. H&H 10 days ago on the 7.7/24.8 With severe orthostasis I suspect volume contraction with nausea vomiting poor p.o. intake due to pain. There is an element of blood loss. Due to enlarging mass, radiologist mentioned potential for hemorrhage within the uterine tumor. With declining H&H over several hours I do suspect a component of hemorrhage. Transfusion 1 unit packed red cells ordered. I spoke with Dr. Evans tank cleaner from previous consulting group. Since patient has not established care within the group, she explained that patient should be covered by on-call tank cleaner adjuster electrical contacts. I initially thought that her leukocytosis possibly related to sepsis. However, I now suspect that leukocytosis is a regenerative phenomenon due to hemorrhage. Dr. Denson tank cleaner on-call agreed to consult. Patient admitted to the hospital service in fair condition. Orthostasis did improve with IV fluid. Critical Care Time: Yes Critical care time in (mins) excluding proc time.: 40 Critical care attestation.: If time is entered above; I have spent that time in minutes in the direct care of this critically ill patient, excluding procedure time. 40 minutes of critical care time excluding procedures were used in the care of the patient. I came immediately to the bedside upon patient's arrival. I obtained history from EMS at the bedside. I was concerned for hyportension and orthostasis. Due to pallor I was concerned for hemorrhage. I ordered type and screen upon patient's arrival. I discussed treatment plan with the nursing team members. I reviewed electronic record. Patient required multiple interventions and reassessments. I spoke with multiple consultants regarding patient's care. ED Disposition Clinical Impression: Orthostatic hypotension, Syncope, Uterine mass, Hepatic metastasis, Menometrorrhagia Disposition: OP ADMIT IP TO THIS HOSP Is pt being admited?: Yes Does the pt Need Aspirin: No Condition: Fair Instructions: Syncope (ED)
[2019-12-16 01:29] LABS: Hematocrit 23.6 % (30.3-42.9); Hemoglobin 7.3 gm/dl (10.1-14.3); Mean Corpuscular HGB Conc 31 % (30-34); Mean Corpuscular Volume 77 fl (79-97); Platelet Count 719 K/mm3 (140-440); Red Blood Count 3.05 M/mm3 (3.65-5.03)
[2019-12-16 01:41] LABS: Red Cell Distribution Width 22.2 % (13.2-15.2)
[2019-12-16 01:49] LABS: Calcium 10.4 mg/dL (8.4-10.2)
[2019-12-16] MEDS ORDERED: SODIUM CHLORIDE 0.9% 1000 ML IV SOLN IV ONE (01:58)
[2019-12-16] MEDS ORDERED: PIPERACIL/TAZOBACTA 4.5/NS 100 4.5 GM/100 ML VIAL IV ONE ×2 (02:00→10:50)
--- NOTE | 2019-12-16 02:19 | XRay Report ---
CHEST 1 VIEW INDICATION / CLINICAL INFORMATION: hypotension. COMPARISON: None available. FINDINGS: SUPPORT DEVICES: None. HEART / MEDIASTINUM: No significant abnormality. LUNGS / PLEURA: No significant pulmonary or pleural abnormality. No pneumothorax. ADDITIONAL FINDINGS: No significant additional findings. IMPRESSION: 1. No acute findings. Signer Name: Lissa Dsouza MD Signed: 12/16/2019 2:15 AM Workstation Name: [id number]
--- NOTE | 2019-12-16 03:48 | Cat Scan Report ---
CTA CHEST WITH IV CONTRAST INDICATION / CLINICAL INFORMATION: syncope, hypotension. TECHNIQUE: Axial CT images were obtained through the chest after injection of 100 cc IV contrast. 3 plane MIP an d/or 3D reconstructions were produced. All CT scans at this location are performed using CT dose redu ction for [facility] by means of automated exposure control. COMPARISON: Chest radiograph 12/16/2019 FINDINGS: PULMONARY ARTERIES: No pulmonary emboli. THORACIC AORTA: No significant abnormality. HEART: Heart size is normal. There is a very small pericardial effusion present. CORONARY ARTERIES: No significant calcification. PLEURA: No pleural effusion. No pneumothorax. LYMPH NODES: There are a few slightly prominent lymph nodes in the superior mediastinum of uncertain clinical significance. LUNGS: No acute air space or interstitial disease. ADDITIONAL FINDINGS: None. UPPER ABDOMEN: The liver contains several metastases, as noted on prior exam. SKELETAL STRUCTURES: No significant osseous abnormality. IMPRESSION: 1. No CT evidence for pulmonary embolism. 2. No acute pulmonary disease. 3. Hepatic metastases which have been identified on recent prior imaging exams. Mild mediastinal anthony opathy. 4. Very small pericardial effusion. Signer Name: Lissa Dsozua MD Signed: 12/16/2019 3:44 AM Workstation Name: [id number]
[2019-12-16] MEDS ORDERED: SODIUM CHLORIDE 0.9% 1000 ML 1,000 ML IV ONE (03:53)
--- NOTE | 2019-12-16 03:58 | Cat Scan Report ---
CT abdomen pelvis w con INDICATION / CLINICAL INFORMATION: hypotension, orthostasis, possible sepsis. History of uterine cancer TECHNIQUE: Axial CT imaging of abdomen and pelvis was obtained with IV contrast. Coronal and sagittal reformatte d imaging obtained and reviewed. All CT scans at this location are performed using CT dose reduction for ALARA by means of automated exposure control. COMPARISON: Prior CT abdomen/pelvis 12/05/2019 FINDINGS: CT abdomen with contrast demonstrates several masses scattered throughout the liver consistent with m etastases. The largest metastasis is subcapsular in location along the inferior tip of the right hepa tic lobe, measuring approximately 4 cm in diameter. This is grossly unchanged from prior exam. Spleen , pancreas, and adrenal glands all appear unremarkable. Cholecystectomy. Bilateral nephrolithiasis is present as noted on prior exams. CT pelvis with contrast demonstrates normal appearance of the appendix. As noted on prior study, the uterus is enlarged with numerous fat-containing solid masses. Large mass appears to be bulging or pro lapsing into the vagina with interval increase in size since the very recent study of 12/05/2019. Pa rt of this apparent increase in size may be secondary to hemorrhage. No free fluid or free air is not ed. No significant adenopathy identified. No additional findings of significance noted within the pel vis No significant osseous abnormality other than mild degenerative change. IMPRESSION: 1. In this patient with known uterine cancer, the uterus remains markedly enlarged and abnormal conta ining several masses. There is a large "mass" which appears to be bulging or prolapsing into the vagi na measuring at least 7.7 cm in transverse diameter. It is possible that a portion of this mass is du e to hemorrhage. Overall, this masslike area has increased in size since the scan performed on 2019. 2. Known hepatic metastases which are grossly stable in appearance. 3. Bilateral nephrolithiasis. Signer Name: Lissa Dsouza MD Signed: 12/16/2019 3:54 AM Workstation Name: [employer]
[2019-12-16] MEDS ORDERED: MORPHINE 4 MG/1 ML INJ IV ONE ×2 (04:15→05:09)
[2019-12-16] MEDS ORDERED: ONDANSETRON 4 MG/2 ML INJ ONE (04:23)
[2019-12-16] MEDS ORDERED: ONDANSETRON 4 MG/2 ML INJ IV ONE (04:24)
[2019-12-16 04:57] LABS: Hematocrit 20.2 % (30.3-42.9); Hemoglobin 6.3 gm/dl (10.1-14.3)
[2019-12-16] MEDS ORDERED: SODIUM CHLORIDE 0.9% 500 ML 500 ML IV ONE (05:05)
[2019-12-16 06:09] LABS: Basophils % (Manual) 0 % (0.0-1.8); Eosinophils % (Manual) 0 % (0.0-4.3); Total Cells Counted 200
[2019-12-16 06:10] LABS: Anisocytosis 1+; Hypochromasia 1+; Platelet Estimate Consistent w Auto
--- NOTE | 2019-12-16 06:47 | History and Physical Report ---
History of Present Illness Date of examination: 12/16/19 Date of admission: 12/16/19 05:09 Chief complaint: Syncope #1 generalized weakness and vaginal bleeding History of present illness: 59-year-old female with history of hypertension and anemia comes by EMS after syncopal episode. Patient has generalized weakness. Patient has history of uterine cancer with metastasis to the liver. Patient has been having vaginal bleeding for the last 1 week. Patient felt lightheaded and passed out. Gets short of breath on minimal exertion. No chest pain. - Past Medical History Previous Medical History?: Yes --Hypertension: Yes --Asthma: Yes - Surgical History Additional Surgical History: Cholecystectomy, tonsillectomy, urinary surgery - Social History Smoking Status: Never Smoker Substance Use Type: None Family history Htn Review of Systems ROS: Constitutional generalized weakness and shortness of breath on minimal exertion HEENT no sore throat no post nasal drip no diplopia Neck no neck stiffness no lymph gland enlargement Chest and lungs no shortness of breath cough or wheezing CVS no chest pain no diaphoresis no palpitations GI no nausea no vomiting no diarrhea Genitourinary system increased vaginal bleeding Musculoskeletal system no muscle pains no joint pains [employer]AL WORK[employer] syncope Skin no rash no itching Psychiatric no depression no homicidal or suicidal tendencies Hematologic no lymphedema or bruising Endocrine no polydipsia no polyuria no cold intolerance no heat intolerance Medications and Allergies Allergies Allergy/AdvReac Type Severity Reaction Status Date / Time hydrocodone Allergy Rash Verified 12/16/19 02:07 Sulfa (Sulfonamide Allergy Rash Verified 12/16/19 02:06 Antibiotics) Exam - Constitutional Vitals: Temp Pulse Resp BP Pulse Ox 99 F 105 H 16 105/69 98 12/16/19 06:06 12/16/19 06:06 12/16/19 06:06 12/16/19 06:06 12/16/19 06:06 General appearance: Present: mild distress, well-nourished - EENT Eyes: Present: PERRL ENT: hearing intact, clear oral mucosa, other (Pale mucous membranes) - Neck Neck: Present: supple, normal ROM - Respiratory Respiratory effort: normal Respiratory: bilateral: CTA - Cardiovascular Heart rate: 98 Rhythm: regular Heart Sounds: Present: S1 & S2. Absent: rub, click - Extremities Extremities: no ischemia, pulses intact, pulses symmetrical, No edema Peripheral Pulses: within normal limits - Abdominal General gastrointestinal: Present: soft, non-tender, non-distended, normal bowel sounds Female genitourinary: Present: normal - Rectal Rectal Exam: deferred - Integumentary Integumentary: Present: clear, warm, dry - Musculoskeletal Musculoskeletal: gait normal, strength equal bilaterally - Psychiatric Psychiatric: appropriate mood/affect, intact judgment & insight - Neurologic Neurologic: CNII-XII intact, moves all extremities - Allied Health Allied health notes reviewed: nursing, case management Results - Labs CBC & Chem 7: 12/16/19 04:33 12/16/19 01:06 Labs: Laboratory Last Values WBC 25.0 K/mm3 (4.5-11.0) H 12/16/19 01:06 RBC 3.05 M/mm3 (3.65-5.03) L 12/16/19 01:06 Hgb 6.3 gm/dl (10.1-14.3) L 12/16/19 04:33 Hct 20.2 % (30.3-42.9) L 12/16/19 04:33 MCV 77 fl (79-97) L 12/16/19 01:06 MCH 24 pg (28-32) L 12/16/19 01:06 MCHC 31 % (30-34) 12/16/19 01:06 RDW 22.2 % (13.2-15.2) H 12/16/19 01:06 Plt Count 719 K/mm3 (140-440) H 12/16/19 01:06 Add Manual Diff Complete 12/16/19 01:06 Total Counted 200 12/16/19 01:06 Seg Neuts % (Manual) 90.0 % (40.0-70.0) H 12/16/19 01:06 Band Neutrophils % 0 % 12/16/19 01:06 Lymphocytes % (Manual) 5.0 % (13.4-35.0) L 12/16/19 01:06 Reactive Lymphs % (Man) 0 % 12/16/19 01:06 Monocytes % (Manual) 5.0 % (0.0-7.3) 12/16/19 01:06 Eosinophils % (Manual) 0 % (0.0-4.3) 12/16/19 01:06 Basophils % (Manual) 0 % (0.0-1.8) 12/16/19 01:06 Metamyelocytes % 0 % 12/16/19 01:06 Myelocytes % 0 % 12/16/19 01:06 Promyelocytes % 0 % 12/16/19 01:06 Blast Cells % 0 % 12/16/19 01:06 Nucleated RBC % Not Reportable 12/16/19 01:06 Seg Neutrophils # Man 22.5 K/mm3 (1.8-7.7) H 12/16/19 01:06 Band Neutrophils # 0.0 K/mm3 12/16/19 01:06 Lymphocytes # (Manual) 1.3 K/mm3 (1.2-5.4) 12/16/19 01:06 Abs React Lymphs (Man) 0.0 K/mm3 12/16/19 01:06 Monocytes # (Manual) 1.3 K/mm3 (0.0-0.8) H 12/16/19 01:06 Eosinophils # (Manual) 0.0 K/mm3 (0.0-0.4) 12/16/19 01:06 Basophils # (Manual) 0.0 K/mm3 (0.0-0.1) 12/16/19 01:06 Metamyelocytes # 0.0 K/mm3 12/16/19 01:06 Myelocytes # 0.0 K/mm3 12/16/19 01:06 Promyelocytes # 0.0 K/mm3 12/16/19 01:06 Blast Cells # 0.0 K/mm3 12/16/19 01:06 WBC Morphology Not Reportable 12/16/19 01:06 Hypersegmented Neuts Not Reportable 12/16/19 01:06 Hyposegmented Neuts Not Reportable 12/16/19 01:06 Hypogranular Neuts Not Reportable 12/16/19 01:06 Smudge Cells Not Reportable 12/16/19 01:06 Toxic Granulation Not Reportable 12/16/19 01:06 Toxic Vacuolation Not Reportable 12/16/19 01:06 Dohle Bodies Not Reportable 12/16/19 01:06 Pelger-Huet Anomaly Not Reportable 12/16/19 01:06 Mohan Rods Not Reportable 12/16/19 01:06 Platelet Estimate Consistent w auto 12/16/19 01:06 Clumped Platelets Not Reportable 12/16/19 01:06 Plt Clumps, EDTA Not Reportable 12/16/19 01:06 Large Platelets Not Reportable 12/16/19 01:06 Giant Platelets Not Reportable 12/16/19 01:06 Platelet Satelliting Not Reportable 12/16/19 01:06 Plt Morphology Comment Not Reportable 12/16/19 01:06 RBC Morphology Not Reportable 12/16/19 01:06 Dimorphic RBCs Not Reportable 12/16/19 01:06 Polychromasia Not Reportable 12/16/19 01:06 Hypochromasia 1+ 12/16/19 01:06 Poikilocytosis Not Reportable 12/16/19 01:06 Anisocytosis 1+ 12/16/19 01:06 Microcytosis Not Reportable 12/16/19 01:06 Macrocytosis Not Reportable 12/16/19 01:06 Spherocytes Not Reportable 12/16/19 01:06 Pappenheimer Bodies Not Reportable 12/16/19 01:06 Sickle Cells Not Reportable 12/16/19 01:06 Target Cells Not Reportable 12/16/19 01:06 Tear Drop Cells Not Reportable 12/16/19 01:06 Ovalocytes Not Reportable 12/16/19 01:06 Helmet Cells Not Reportable 12/16/19 01:06 Mann-[place]burn Bodies Not Reportable 12/16/19 01:06 [place] Rings Not Reportable 12/16/19 01:06 Eli Cells Not Reportable 12/16/19 01:06 Bite Cells Not Reportable 12/16/19 01:06 Crenated Cell Not Reportable 12/16/19 01:06 Elliptocytes Not Reportable 12/16/19 01:06 Acanthocytes (Spur) Not Reportable 12/16/19 01:06 Rouleaux Not Reportable 12/16/19 01:06 Hemoglobin C Crystals Not Reportable 12/16/19 01:06 Schistocytes Not Reportable 12/16/19 01:06 Malaria parasites Not Reportable 12/16/19 01:06 Saurav Bodies Not Reportable 12/16/19 01:06 Hem Pathologist Commnt No 12/16/19 01:06 Sodium 131 mmol/L (137-145) L 12/16/19 01:06 Potassium 3.4 mmol/L (3.6-5.0) L 12/16/19 01:06 Chloride 95.6 mmol/L (98-107) L 12/16/19 01:06 Carbon Dioxide 20 mmol/L (22-30) L 12/16/19 01:06 Anion Gap 19 mmol/L 12/16/19 01:06 BUN 17 mg/dL (7-17) 12/16/19 01:06 Creatinine 1.0 mg/dL (0.6-1.2) 12/16/19 01:06 Estimated GFR 57 ml/min 12/16/19 01:06 BUN/Creatinine Ratio 17 % 12/16/19 01:06 Glucose 108 mg/dL (65-100) H 12/16/19 01:06 Lactic Acid 1.10 mmol/L (0.7-2.0) 12/16/19 04:33 Calcium 10.4 mg/dL (8.4-10.2) H 12/16/19 01:06 Blood Type O POSITIVE 12/16/19 01:15 Antibody Screen Negative 12/16/19 01:15 Crossmatch See Detail 12/16/19 01:15 Microbiology: Microbiology 12/16/19 02:13 Peripheral/Venous Blood Culture - Preliminary Culture in Progress 12/16/19 03:00 Peripheral/Venous Blood Culture - Preliminary Culture in Progress - Imaging and Cardiology Chest x-ray: report reviewed (No acute findings) Imaging and Cardiology: Abdominal CAT scan IMPRESSION: 1. In this patient with known uterine cancer, the uterus remains markedly enlarged and abnormal containing several masses. There is a large "mass" which appears to be bulging or prolapsing into the vagina measuring at least 7.7 cm in transverse diameter. It is possible that a portion of this mass is due to hemorrhage. Overall, this masslike area has increased in size since the scan performed on 12/05/2019. 2. Known hepatic metastases which are grossly stable in appearance. 3. Bilateral nephrolithiasis. Chest CTA IMPRESSION: 1. No CT evidence for pulmonary embolism. 2. No acute pulmonary disease. 3. Hepatic metastases which have been identified on recent prior imaging exams. Mild mediastinal adenopathy. 4. Very small pericardial effusion. Signer Name: Lissa Dsouza MD Signed: 12/16/2019 3:44 AM Workstation Name: [employer] Assessment and Plan Advance Directives: Yes (Full code) VTE prophylaxis?: Chemical Plan of care discussed with patient/family: Yes - Patient Problems (1) SIRS (systemic inflammatory response syndrome) Current Visit: Yes Status: Acute Plan to address problem: Patient has a high white count Empiric antibiotics May be demargination (2) Symptomatic anemia Current Visit: Yes Status: Acute Plan to address problem: Transfuse 2 units of packed red blood cells Possible discharge after transfusions Will defer to primary team Patient will need follow-up with [facility] oncology as outpatient for possible chemo/radiation treatment.. Patient has stage IV uterine cancer (3) Syncope Current Visit: Yes Status: Acute Qualifiers: Encounter type: initial encounter Plan to address problem: Syncope secondary to blood loss and volume loss Transfuse 1 unit 2 units of blood No further work-up for syncope (4) Menometrorrhagia Current Visit: Yes Status: Acute Plan to address problem: Follow with [facility] after discharge We will stabilize the patient and discharge Transfuse 1 to 2 units of blood-packed red blood cells (5) Uterine mass Current Visit: Yes Status: Chronic Plan to address problem: Stage IV cancer with hepatic metastasis Needs follow-up with [facility] oncology and [employer] 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
[2019-12-16] MEDS ORDERED: ONDANSETRON 4 MG/2 ML INJ IV PRN (06:59)
[2019-12-16] MEDS ORDERED: ACETAMINOPHEN 325 MG TAB PO PRN ×2 (06:59→12:05)
[2019-12-16] MEDS ORDERED: HYDROmorphone 1 MG/1 ML INJ IV PRN (06:59)
[2019-12-16] MEDS ORDERED: SODIUM CHLORIDE 0.9% 1000 ML 1,000 ML IV SCH (07:00)
[2019-12-16] MEDS ORDERED: SODIUM CHLORIDE 0.9% 500 ML 500 ML IV NR (07:02)
[2019-12-16] MEDS ORDERED: POTASSIUM CHLORIDE ER 20 MEQ TAB PO NR (07:30)
[2019-12-16] MEDS ORDERED: PIPERACIL/TAZOBACTA 4.5/NS 100 4.5 GM/100 ML VIAL IV SCH (10:00)
[2019-12-16 10:13] LABS: Bilirubin,Urine NEG (Negative); Blood,Urine LG (Negative); Color,Urine Red (Yellow); Urobilinogen,Urine < 2.0 mg/dL (<2.0)
[2019-12-16 10:20] LABS: RBC,Urine > 182.0 /HPF (0.0-6.0)
[2019-12-16] MEDS ORDERED: HYDROmorphone 1 MG/1 ML INJ ONE (10:21)
[2019-12-16] MEDS ORDERED: oxyCODONE /ACETAMINOPHEN 5-325MG TAB ONE ×3 (10:49→23:19)
[2019-12-16] MEDS ORDERED: POTASSIUM CHLORIDE ER 20 MEQ TAB PO ONE (10:50)
[2019-12-16] MEDS ORDERED: FAMOTIDINE 20 MG/2 ML INJ IV ONE ×2 (10:51→20:59)
[2019-12-16] MEDS: FAMOTIDINE 20 MG/2 ML INJ IV SCH ×2 (10:54→21:33)
[2019-12-16] MEDS: oxyCODONE /ACETAMINOPHEN 5-325MG TAB PO PRN ×3 (10:54→23:22)
--- NOTE | 2019-12-16 13:06 | Consultation ---
History of Present Illness Consult date: 12/16/19 Reason for consult: other (vaginal bleeding) History of present illness: 59y/o who presents to the ED with a syncopal episode and vaginal bleeding. The patient has a known history of a uterine mass suspected to be consistent with carcinoma and metastasis to the liver. The patient was scheduled for evaluation with [facility] this week but states she did not keep the appointment secondary to nausea and vomiting. CT scan indicates enlargement of the mass. Past History Past Medical History: hypertension, other (uterine carcinoma) Past Surgical History: cholecystectomy Social history: - Obstetrical History : 2 Para: 2 Hx # Term Pregnancies: 2 Number of Pregnancies: 0 Spontaneous Abortions: 0 Induced : 0 Number of Living Children: 2 Medications and Allergies Allergies Allergy/AdvReac Type Severity Reaction Status Date / Time hydrocodone Allergy Rash Verified 12/16/19 02:07 Sulfa (Sulfonamide Allergy Rash Verified 12/16/19 02:06 Antibiotics) Active Meds: Active Medications Acetaminophen (Tylenol) 650 mg PO Q4H PRN PRN Reason: Pain MILD(1-3)/Fever >100.5/GOULD Famotidine (Pepcid) 20 mg IV BID WILLY Last Admin: 12/16/19 10:54 Dose: 20 mg Documented by: Hydromorphone HCl (Dilaudid) 0.25 mg IV Q4H PRN PRN Reason: Pain, Moderate (4-6) Sodium Chloride (Nacl 0.9% 1000 Ml) 1,000 mls @ 75 mls/hr IV DIRECT WILLY Piperacillin Sod/Tazobactam Sod (Zosyn/Ns 4.5gm/100ml) 4.5 gm in 100 mls @ 200 mls/hr IV Q8H WILLY; Protocol Last Infusion: 12/16/19 11:25 Dose: Infused Documented by: Sodium Chloride (Nacl 0.9% 500 Ml) 500 mls @ 0 mls/hr IV ONCE NR Stop: 12/17/19 07:01 Cefepime HCl (Cefepime/Ns 2 Gm/100 Ml) 2 gm in 100 mls @ 200 mls/hr IV Q12HR WILLY; Protocol Sodium Chloride (Nacl 0.9% 1000 Ml) 1,000 mls @ 135 mls/hr IV DIRECT WILLY Ondansetron HCl (Zofran) 4 mg IV Q8H PRN PRN Reason: Nausea And Vomiting Oxycodone/Acetaminophen (Percocet 5/325) 1 tab PO Q6H PRN PRN Reason: Pain, Moderate (4-6) Last Admin: 12/16/19 10:54 Dose: 1 tab Documented by: Sodium Chloride (Sodium Chloride Flush Syringe 10 Ml) 10 ml IV BID WILLY Last Admin: 12/16/19 10:55 Dose: 10 ml Documented by: Sodium Chloride (Sodium Chloride Flush Syringe 10 Ml) 10 ml IV PRN PRN PRN Reason: LINE FLUSH Review of Systems Constitutional: fatigue, weakness, malaise, lethargy, poor appetite Genitourinary: vaginal bleeding - Vital Signs Vital signs: Vital Signs Pulse Resp Pulse Ox 125 H 10 L 98 12/16/19 00:42 12/16/19 00:42 12/16/19 00:42 Temp Pulse Resp BP Pulse Ox 98.7 F 77 13 93/46 97 12/16/19 12:44 12/16/19 12:44 12/16/19 12:44 12/16/19 12:44 12/16/19 12:44 Results Result Diagrams: 12/16/19 04:33 12/16/19 01:06 Abnormal lab results 12/16/19 12/16/19 12/16/19 Range/Units 01:06 01:06 01:15 WBC 25.0 H (4.5-11.0) K/mm3 RBC 3.05 L (3.65-5.03) M/mm3 Hgb 7.3 L (10.1-14.3) gm/dl Hct 23.6 L (30.3-42.9) % MCV 77 L (79-97) fl MCH 24 L (28-32) pg RDW 22.2 H (13.2-15.2) % Plt Count 719 H (140-440) K/mm3 Seg Neuts % (Manual) 90.0 H (40.0-70.0) % Lymphocytes % (Manual) 5.0 L (13.4-35.0) % Seg Neutrophils # Man 22.5 H (1.8-7.7) K/mm3 Monocytes # (Manual) 1.3 H (0.0-0.8) K/mm3 Sodium 131 L (137-145) mmol/L Potassium 3.4 L (3.6-5.0) mmol/L Chloride 95.6 L (98-107) mmol/L Carbon Dioxide 20 L (22-30) mmol/L Glucose 108 H (65-100) mg/dL Calcium 10.4 H (8.4-10.2) mg/dL Ur Specific [place] (1.003-1.030) Urine WBC (Auto) (0.0-6.0) /HPF Crossmatch See Detail 12/16/19 12/16/19 Range/Units 04:33 09:37 WBC (4.5-11.0) K/mm3 RBC (3.65-5.03) M/mm3 Hgb 6.3 L (10.1-14.3) gm/dl Hct 20.2 L (30.3-42.9) % MCV (79-97) fl MCH (28-32) pg RDW (13.2-15.2) % Plt Count (140-440) K/mm3 Seg Neuts % (Manual) (40.0-70.0) % Lymphocytes % (Manual) (13.4-35.0) % Seg Neutrophils # Man (1.8-7.7) K/mm3 Monocytes # (Manual) (0.0-0.8) K/mm3 Sodium (137-145) mmol/L Potassium (3.6-5.0) mmol/L Chloride (98-107) mmol/L Carbon Dioxide (22-30) mmol/L Glucose (65-100) mg/dL Calcium (8.4-10.2) mg/dL Ur Specific [place] 1.055 H (1.003-1.030) Urine WBC (Auto) 99.0 H (0.0-6.0) /HPF Crossmatch All other labs normal. Assessment and Plan - Patient Problems (1) Uterine carcinoma Current Visit: Yes Status: Acute Plan to address problem: patient being transfused for anemia patient will need immediate followup with [facility] patient was scheduled to be evaluated at [facility] may need to consider transfer of care via EMS to [place] to [facility] (2) Metastases to the liver Current Visit: Yes Status: Acute (3) Symptomatic anemia Current Visit: Yes Status: Acute (4) Syncope Current Visit: Yes Status: Acute Qualifiers: Encounter type: initial encounter
[2019-12-16] MEDS ORDERED: SODIUM CHLORIDE 0.9% 500 ML 500 ML ONE (13:17)
[2019-12-16] MEDS ORDERED: SODIUM CHLORIDE 0.9% 1000 ML 1,000 ML ONE (13:17)
[2019-12-16] MEDS: SODIUM CHLORIDE 0.9% 1000 ML 1,000 ML IV SCH (14:20)
--- NOTE | 2019-12-16 15:21 | Progress Note ---
Assessment and Plan - Patient Problems (1) Sepsis Current Visit: Yes Status: Acute Plan to address problem: Sepsis protocol: CBC, chest x-ray, urinalysis, IV antibiotic therapy, serial lactic acid level, IV fluid resuscitation therapy, monitor mean arterial pressure and maintain mean arterial pressure greater than or equal to 65, monitor fluid balance. Blood culture. (2) Urinary tract infection Current Visit: Yes Status: Acute Qualifiers: Encounter type: initial encounter Plan to address problem: IV antibiotic therapy, CBC, CMP, urinalysis. (3) Symptomatic anemia Current Visit: Yes Status: Acute Plan to address problem: Packed red blood cell transfusion, supportive care, repeat CBC in a.m. (4) Uterine carcinoma Current Visit: Yes Status: Acute Plan to address problem: PASTORAL ASSISTANT consulted, outpatient oncology follow-up. (5) Hepatic metastasis Current Visit: Yes Status: Chronic (6) DVT prophylaxis Current Visit: Yes Status: Acute Plan to address problem: SCD to bilateral lower extremities while in bed, hold anticoagulation now due to active vaginal bleeding. History Interval history: 59-year-old female hospital day 2 with sepsis complicated by urinary tract infection, hyponatremia, metabolic acidosis, uterine cancer with metastatic disease to the liver, anemia of chronic disease. Patient seen and evaluated in her room while boarding in the emergency department. Patient denies pain. No reported nursing events. Patient counseled regarding prognosis. Patient states that she feels somewhat better today. Patient denies pain. Patient acknowledges mild improvement in weakness after blood transfusion. Hospitalist Physical - Constitutional Vitals: Temp Pulse Resp BP Pulse Ox 98.1 F 75 16 112/61 99 12/16/19 15:00 12/16/19 15:00 12/16/19 15:00 12/16/19 15:00 12/16/19 15:00 General appearance: Present: mild distress, well-nourished, cachectic - EENT Eyes: Present: PERRL, EOM intact (Conjunctival pallor) - Neck Neck: Present: supple - Respiratory Respiratory effort: normal Respiratory: bilateral: CTA - Cardiovascular Rhythm: regular Heart Sounds: Present: S1 & S2 - Extremities Extremities: no ischemia Peripheral Pulses: within normal limits - Abdominal General gastrointestinal: soft, non-tender, non-distended - Integumentary Integumentary: Present: clear, dry - Psychiatric Psychiatric: appropriate mood/affect, cooperative - Neurologic Neurologic: CNII-XII intact Results - Labs CBC & Chem 7: 12/16/19 04:33 12/16/19 01:06 Labs: Laboratory Last Values WBC 25.0 K/mm3 (4.5-11.0) H 12/16/19 01:06 RBC 3.05 M/mm3 (3.65-5.03) L 12/16/19 01:06 Hgb 6.3 gm/dl (10.1-14.3) L 12/16/19 04:33 Hct 20.2 % (30.3-42.9) L 12/16/19 04:33 MCV 77 fl (79-97) L 12/16/19 01:06 MCH 24 pg (28-32) L 12/16/19 01:06 MCHC 31 % (30-34) 12/16/19 01:06 RDW 22.2 % (13.2-15.2) H 12/16/19 01:06 Plt Count 719 K/mm3 (140-440) H 12/16/19 01:06 Add Manual Diff Complete 12/16/19 01:06 Total Counted 200 12/16/19 01:06 Seg Neuts % (Manual) 90.0 % (40.0-70.0) H 12/16/19 01:06 Band Neutrophils % 0 % 12/16/19 01:06 Lymphocytes % (Manual) 5.0 % (13.4-35.0) L 12/16/19 01:06 Reactive Lymphs % (Man) 0 % 12/16/19 01:06 Monocytes % (Manual) 5.0 % (0.0-7.3) 12/16/19 01:06 Eosinophils % (Manual) 0 % (0.0-4.3) 12/16/19 01:06 Basophils % (Manual) 0 % (0.0-1.8) 12/16/19 01:06 Metamyelocytes % 0 % 12/16/19 01:06 Myelocytes % 0 % 12/16/19 01:06 Promyelocytes % 0 % 12/16/19 01:06 Blast Cells % 0 % 12/16/19 01:06 Nucleated RBC % Not Reportable 12/16/19 01:06 Seg Neutrophils # Man 22.5 K/mm3 (1.8-7.7) H 12/16/19 01:06 Band Neutrophils # 0.0 K/mm3 12/16/19 01:06 Lymphocytes # (Manual) 1.3 K/mm3 (1.2-5.4) 12/16/19 01:06 Abs React Lymphs (Man) 0.0 K/mm3 12/16/19 01:06 Monocytes # (Manual) 1.3 K/mm3 (0.0-0.8) H 12/16/19 01:06 Eosinophils # (Manual) 0.0 K/mm3 (0.0-0.4) 12/16/19 01:06 Basophils # (Manual) 0.0 K/mm3 (0.0-0.1) 12/16/19 01:06 Metamyelocytes # 0.0 K/mm3 12/16/19 01:06 Myelocytes # 0.0 K/mm3 12/16/19 01:06 Promyelocytes # 0.0 K/mm3 12/16/19 01:06 Blast Cells # 0.0 K/mm3 12/16/19 01:06 WBC Morphology Not Reportable 12/16/19 01:06 Hypersegmented Neuts Not Reportable 12/16/19 01:06 Hyposegmented Neuts Not Reportable 12/16/19 01:06 Hypogranular Neuts Not Reportable 12/16/19 01:06 Smudge Cells Not Reportable 12/16/19 01:06 Toxic Granulation Not Reportable 12/16/19 01:06 Toxic Vacuolation Not Reportable 12/16/19 01:06 Dohle Bodies Not Reportable 12/16/19 01:06 Pelger-Huet Anomaly Not Reportable 12/16/19 01:06 Mohan Rods Not Reportable 12/16/19 01:06 Platelet Estimate Consistent w auto 12/16/19 01:06 Clumped Platelets Not Reportable 12/16/19 01:06 Plt Clumps, EDTA Not Reportable 12/16/19 01:06 Large Platelets Not Reportable 12/16/19 01:06 Giant Platelets Not Reportable 12/16/19 01:06 Platelet Satelliting Not Reportable 12/16/19 01:06 Plt Morphology Comment Not Reportable 12/16/19 01:06 RBC Morphology Not Reportable 12/16/19 01:06 Dimorphic RBCs Not Reportable 12/16/19 01:06 Polychromasia Not Reportable 12/16/19 01:06 Hypochromasia 1+ 12/16/19 01:06 Poikilocytosis Not Reportable 12/16/19 01:06 Anisocytosis 1+ 12/16/19 01:06 Microcytosis Not Reportable 12/16/19 01:06 Macrocytosis Not Reportable 12/16/19 01:06 Spherocytes Not Reportable 12/16/19 01:06 Pappenheimer Bodies Not Reportable 12/16/19 01:06 Sickle Cells Not Reportable 12/16/19 01:06 Target Cells Not Reportable 12/16/19 01:06 Tear Drop Cells Not Reportable 12/16/19 01:06 Ovalocytes Not Reportable 12/16/19 01:06 Helmet Cells Not Reportable 12/16/19 01:06 Mann-[place] Bodies Not Reportable 12/16/19 01:06 [place] Rings Not Reportable 12/16/19 01:06 [place] Cells Not Reportable 12/16/19 01:06 Bite Cells Not Reportable 12/16/19 01:06 Crenated Cell Not Reportable 12/16/19 01:06 Elliptocytes Not Reportable 12/16/19 01:06 Acanthocytes (Spur) Not Reportable 12/16/19 01:06 Rouleaux Not Reportable 12/16/19 01:06 Hemoglobin C Crystals Not Reportable 12/16/19 01:06 Schistocytes Not Reportable 12/16/19 01:06 Malaria parasites Not Reportable 12/16/19 01:06 Saurav Bodies Not Reportable 12/16/19 01:06 Hem Pathologist Commnt No 12/16/19 01:06 Sodium 131 mmol/L (137-145) L 12/16/19 01:06 Potassium 3.4 mmol/L (3.6-5.0) L 12/16/19 01:06 Chloride 95.6 mmol/L (98-107) L 12/16/19 01:06 Carbon Dioxide 20 mmol/L (22-30) L 12/16/19 01:06 Anion Gap 19 mmol/L 12/16/19 01:06 BUN 17 mg/dL (7-17) 12/16/19 01:06 Creatinine 1.0 mg/dL (0.6-1.2) 12/16/19 01:06 Estimated GFR 57 ml/min 12/16/19 01:06 BUN/Creatinine Ratio 17 % 12/16/19 01:06 Glucose 108 mg/dL (65-100) H 12/16/19 01:06 Hemoglobin A1c 5.4 % (4-6) 12/16/19 04:33 Lactic Acid 1.10 mmol/L (0.7-2.0) 12/16/19 04:33 Calcium 10.4 mg/dL (8.4-10.2) H 12/16/19 01:06 Urine Color Red (Yellow) 12/16/19 09:37 Urine Turbidity Clear (Clear) 12/16/19 09:37 Urine pH 6.0 (5.0-7.0) 12/16/19 09:37 Ur Specific [place] 1.055 (1.003-1.030) H 12/16/19 09:37 Urine Protein 100 mg/dl mg/dL (Negative) 12/16/19 09:37 Urine Glucose (UA) Neg mg/dL (Negative) 12/16/19 09:37 Urine Ketones Neg mg/dL (Negative) 12/16/19 09:37 Urine Blood Lg (Negative) 12/16/19 09:37 Urine Nitrite Neg (Negative) 12/16/19 09:37 Urine Bilirubin Neg (Negative) 12/16/19 09:37 Urine Urobilinogen < 2.0 mg/dL (<2.0) 12/16/19 09:37 Ur Leukocyte Esterase Lg (Negative) 12/16/19 09:37 Urine WBC (Auto) 99.0 /HPF (0.0-6.0) H 12/16/19 09:37 Urine RBC (Auto) > 182.0 /HPF (0.0-6.0) 12/16/19 09:37 U Epithel Cells (Auto) 1.0 /HPF (0-13.0) 12/16/19 09:37 Urine WBC Clumps 1+ /HPF 12/16/19 09:37 Blood Type O POSITIVE 12/16/19 01:15 Antibody Screen Negative 12/16/19 01:15 Crossmatch See Detail 12/16/19 01:15 Microbiology: Microbiology 12/16/19 02:13 Peripheral/Venous Blood Culture - Preliminary Culture in Progress 12/16/19 03:00 Peripheral/Venous Blood Culture - Preliminary Culture in Progress Elder/IV: IV Catheter Type [Right INT / Saline Lock Forearm] IV Catheter Type [Left INT / Saline Lock Antecubital] IV Catheter Type [Left Hand] INT / Saline Lock Active Medications - Current Medications Current Medications: Generic Name Dose Route Start Last Admin Trade Name Freq PRN Reason Stop Dose Admin Acetaminophen 650 mg 12/16/19 06:59 Tylenol PO Q4H PRN Pain MILD(1-3)/Fever >100.5/GOULD Famotidine 20 mg 12/16/19 10:00 12/16/19 10:54 Pepcid IV 20 mg BID WILLY Administration Hydromorphone HCl 0.25 mg 12/16/19 12:05 Dilaudid IV Q4H PRN Pain, Moderate (4-6) Sodium Chloride 1,000 mls @ 75 mls/hr 12/16/19 07:00 Nacl 0.9% 1000 Ml IV DIRECT WILLY Sodium Chloride 500 mls @ 0 mls/hr 12/16/19 07:02 Nacl 0.9% 500 Ml IV 12/17/19 07:01 ONCE NR As Directed Cefepime HCl 2 gm in 100 mls @ 200 mls/hr 12/16/19 22:00 Cefepime/Ns 2 Gm/100 Ml IV Q12HR WILLY Protocol Sodium Chloride 1,000 mls @ 135 mls/hr 12/16/19 12:15 12/16/19 14:20 Nacl 0.9% 1000 Ml IV 135 mls/hr DIRECT WILLY Administration Ondansetron HCl 4 mg 12/16/19 06:59 Zofran IV Q8H PRN Nausea And Vomiting Oxycodone/Acetaminophen 1 tab 12/16/19 06:59 12/16/19 10:54 Percocet 5/325 PO 1 tab Q6H PRN Administration Pain, Moderate (4-6) Sodium Chloride 10 ml 12/16/19 10:00 12/16/19 10:55 Sodium Chloride Flush Syringe 10 Ml IV 10 ml BID WILLY Administration Sodium Chloride 10 ml 12/16/19 06:59 Sodium Chloride Flush Syringe 10 Ml IV PRN PRN LINE FLUSH
[2019-12-16 19:53] LABS: Hematocrit 29.2 % (30.3-42.9); Hemoglobin 9.7 gm/dl (10.1-14.3)
[2019-12-16] MEDS ORDERED: CEFEPIME/NS 2 GM/100 ML 2 GM/100 ML BAG IV ONE (20:58)
[2019-12-16] MEDS: CEFEPIME/NS 2 GM/100 ML 2 GM/100 ML BAG IV SCH (21:34)
[2019-12-16] MEDS ORDERED: HYDROcodone/ACETAMINOPHEN 5-325 MG TAB ONE (23:17)
[2019-12-17] MEDS ORDERED: SODIUM CHLORIDE 0.9% 1000 ML 1,000 ML ONE (00:04)
[2019-12-17] MEDS ORDERED: oxyCODONE /ACETAMINOPHEN 5-325MG TAB ONE (08:26)
[2019-12-17] MEDS: oxyCODONE /ACETAMINOPHEN 5-325MG TAB PO PRN ×2 (08:29→17:47)
[2019-12-17] MEDS: CEFEPIME/NS 2 GM/100 ML 2 GM/100 ML BAG IV SCH ×2 (10:27→21:51)
[2019-12-17] MEDS: FAMOTIDINE 20 MG/2 ML INJ IV SCH ×2 (10:29→21:51)
[2019-12-17] MEDS: HYDROmorphone 1 MG/1 ML INJ IV PRN ×2 (10:29→12:50)
--- NOTE | 2019-12-17 20:25 | Progress Note ---
Assessment and Plan - Patient Problems (1) Sepsis Current Visit: Yes Status: Acute Plan to address problem: Sepsis protocol: CBC, chest x-ray, urinalysis, IV antibiotic therapy, serial lactic acid level, IV fluid resuscitation therapy, monitor mean arterial pressure and maintain mean arterial pressure greater than or equal to 65, monitor fluid balance. Blood culture. (2) Urinary tract infection Current Visit: Yes Status: Acute Qualifiers: Encounter type: initial encounter Plan to address problem: IV antibiotic therapy, CBC, CMP, urinalysis. (3) Symptomatic anemia Current Visit: Yes Status: Acute Plan to address problem: Packed red blood cell transfusion, supportive care, repeat CBC in a.m. (4) Uterine carcinoma Current Visit: Yes Status: Acute Plan to address problem: [employer] consulted, outpatient oncology follow-up. (5) Hepatic metastasis Current Visit: Yes Status: Chronic (6) DVT prophylaxis Current Visit: Yes Status: Acute Plan to address problem: SCD to bilateral lower extremities while in bed, hold anticoagulation now due to active vaginal bleeding. History Interval history: 59-year-old female hospital day 3 with sepsis complicated by urinary tract infection, hyponatremia, metabolic acidosis, uterine cancer with metastatic disease to the liver, anemia of chronic disease. Patient seen and evaluated in her room. Patient denies pain. No reported nursing events. Patient counseled regarding prognosis. Patient states that she feels better today. Patient denies pain. Patient acknowledges mild improvement in weakness after blood transfusion. Discharge planning in a.m. Hospitalist Physical - Constitutional Vitals: Temp Pulse Resp BP Pulse Ox 98.1 F 103 H 16 108/69 95 12/17/19 19:13 12/17/19 19:13 12/17/19 19:13 12/17/19 19:13 12/17/19 19:13 General appearance: Present: mild distress, well-nourished, cachectic - EENT Eyes: Present: PERRL, EOM intact - Neck Neck: Present: supple - Respiratory Respiratory effort: normal Respiratory: bilateral: CTA - Cardiovascular Rhythm: regular Heart Sounds: Present: S1 & S2 - Extremities Extremities: no ischemia Peripheral Pulses: within normal limits - Abdominal General gastrointestinal: soft, non-tender, non-distended - Integumentary Integumentary: Present: clear, dry - Psychiatric Psychiatric: appropriate mood/affect, cooperative - Neurologic Neurologic: CNII-XII intact Results - Labs CBC & Chem 7: 12/16/19 19:31 12/16/19 01:06 Labs: Laboratory Last Values WBC 25.0 K/mm3 (4.5-11.0) H 12/16/19 01:06 RBC 3.05 M/mm3 (3.65-5.03) L 12/16/19 01:06 Hgb 9.7 gm/dl (10.1-14.3) L D 12/16/19 19:31 Hct 29.2 % (30.3-42.9) L D 12/16/19 19:31 MCV 77 fl (79-97) L 12/16/19 01:06 MCH 24 pg (28-32) L 12/16/19 01:06 MCHC 31 % (30-34) 12/16/19 01:06 RDW 22.2 % (13.2-15.2) H 12/16/19 01:06 Plt Count 719 K/mm3 (140-440) H 12/16/19 01:06 Add Manual Diff Complete 12/16/19 01:06 Total Counted 200 12/16/19 01:06 Seg Neuts % (Manual) 90.0 % (40.0-70.0) H 12/16/19 01:06 Band Neutrophils % 0 % 12/16/19 01:06 Lymphocytes % (Manual) 5.0 % (13.4-35.0) L 12/16/19 01:06 Reactive Lymphs % (Man) 0 % 12/16/19 01:06 Monocytes % (Manual) 5.0 % (0.0-7.3) 12/16/19 01:06 Eosinophils % (Manual) 0 % (0.0-4.3) 12/16/19 01:06 Basophils % (Manual) 0 % (0.0-1.8) 12/16/19 01:06 Metamyelocytes % 0 % 12/16/19 01:06 Myelocytes % 0 % 12/16/19 01:06 Promyelocytes % 0 % 12/16/19 01:06 Blast Cells % 0 % 12/16/19 01:06 Nucleated RBC % Not Reportable 12/16/19 01:06 Seg Neutrophils # Man 22.5 K/mm3 (1.8-7.7) H 12/16/19 01:06 Band Neutrophils # 0.0 K/mm3 12/16/19 01:06 Lymphocytes # (Manual) 1.3 K/mm3 (1.2-5.4) 12/16/19 01:06 Abs React Lymphs (Man) 0.0 K/mm3 12/16/19 01:06 Monocytes # (Manual) 1.3 K/mm3 (0.0-0.8) H 12/16/19 01:06 Eosinophils # (Manual) 0.0 K/mm3 (0.0-0.4) 12/16/19 01:06 Basophils # (Manual) 0.0 K/mm3 (0.0-0.1) 12/16/19 01:06 Metamyelocytes # 0.0 K/mm3 12/16/19 01:06 Myelocytes # 0.0 K/mm3 12/16/19 01:06 Promyelocytes # 0.0 K/mm3 12/16/19 01:06 Blast Cells # 0.0 K/mm3 12/16/19 01:06 WBC Morphology Not Reportable 12/16/19 01:06 Hypersegmented Neuts Not Reportable 12/16/19 01:06 Hyposegmented Neuts Not Reportable 12/16/19 01:06 Hypogranular Neuts Not Reportable 12/16/19 01:06 Smudge Cells Not Reportable 12/16/19 01:06 Toxic Granulation Not Reportable 12/16/19 01:06 Toxic Vacuolation Not Reportable 12/16/19 01:06 Dohle Bodies Not Reportable 12/16/19 01:06 Pelger-Huet Anomaly Not Reportable 12/16/19 01:06 Mohan Rods Not Reportable 12/16/19 01:06 Platelet Estimate Consistent w auto 12/16/19 01:06 Clumped Platelets Not Reportable 12/16/19 01:06 Plt Clumps, EDTA Not Reportable 12/16/19 01:06 Large Platelets Not Reportable 12/16/19 01:06 Giant Platelets Not Reportable 12/16/19 01:06 Platelet Satelliting Not Reportable 12/16/19 01:06 Plt Morphology Comment Not Reportable 12/16/19 01:06 RBC Morphology Not Reportable 12/16/19 01:06 Dimorphic RBCs Not Reportable 12/16/19 01:06 Polychromasia Not Reportable 12/16/19 01:06 Hypochromasia 1+ 12/16/19 01:06 Poikilocytosis Not Reportable 12/16/19 01:06 Anisocytosis 1+ 12/16/19 01:06 Microcytosis Not Reportable 12/16/19 01:06 Macrocytosis Not Reportable 12/16/19 01:06 Spherocytes Not Reportable 12/16/19 01:06 Pappenheimer Bodies Not Reportable 12/16/19 01:06 Sickle Cells Not Reportable 12/16/19 01:06 Target Cells Not Reportable 12/16/19 01:06 Tear Drop Cells Not Reportable 12/16/19 01:06 Ovalocytes Not Reportable 12/16/19 01:06 Helmet Cells Not Reportable 12/16/19 01:06 Mann-[place] Bodies Not Reportable 12/16/19 01:06 [place] Rings Not Reportable 12/16/19 01:06 [place] Cells Not Reportable 12/16/19 01:06 Bite Cells Not Reportable 12/16/19 01:06 Crenated Cell Not Reportable 12/16/19 01:06 Elliptocytes Not Reportable 12/16/19 01:06 Acanthocytes (Spur) Not Reportable 12/16/19 01:06 Rouleaux Not Reportable 12/16/19 01:06 Hemoglobin C Crystals Not Reportable 12/16/19 01:06 Schistocytes Not Reportable 12/16/19 01:06 Malaria parasites Not Reportable 12/16/19 01:06 Saurav Bodies Not Reportable 12/16/19 01:06 Hem Pathologist Commnt No 12/16/19 01:06 Sodium 131 mmol/L (137-145) L 12/16/19 01:06 Potassium 3.4 mmol/L (3.6-5.0) L 12/16/19 01:06 Chloride 95.6 mmol/L (98-107) L 12/16/19 01:06 Carbon Dioxide 20 mmol/L (22-30) L 12/16/19 01:06 Anion Gap 19 mmol/L 12/16/19 01:06 BUN 17 mg/dL (7-17) 12/16/19 01:06 Creatinine 1.0 mg/dL (0.6-1.2) 12/16/19 01:06 Estimated GFR 57 ml/min 12/16/19 01:06 BUN/Creatinine Ratio 17 % 12/16/19 01:06 Glucose 108 mg/dL (65-100) H 12/16/19 01:06 Hemoglobin A1c 5.4 % (4-6) 12/16/19 04:33 Lactic Acid 1.20 mmol/L (0.7-2.0) 12/17/19 02:20 Calcium 10.4 mg/dL (8.4-10.2) H 12/16/19 01:06 Urine Color Red (Yellow) 12/16/19 09:37 Urine Turbidity Clear (Clear) 12/16/19 09:37 Urine pH 6.0 (5.0-7.0) 12/16/19 09:37 Ur Specific [place] 1.055 (1.003-1.030) H 12/16/19 09:37 Urine Protein 100 mg/dl mg/dL (Negative) 12/16/19 09:37 Urine Glucose (UA) Neg mg/dL (Negative) 12/16/19 09:37 Urine Ketones Neg mg/dL (Negative) 12/16/19 09:37 Urine Blood Lg (Negative) 12/16/19 09:37 Urine Nitrite Neg (Negative) 12/16/19 09:37 Urine Bilirubin Neg (Negative) 12/16/19 09:37 Urine Urobilinogen < 2.0 mg/dL (<2.0) 12/16/19 09:37 Ur Leukocyte Esterase Lg (Negative) 12/16/19 09:37 Urine WBC (Auto) 99.0 /HPF (0.0-6.0) H 12/16/19 09:37 Urine RBC (Auto) > 182.0 /HPF (0.0-6.0) 12/16/19 09:37 U Epithel Cells (Auto) 1.0 /HPF (0-13.0) 12/16/19 09:37 Urine WBC Clumps 1+ /HPF 12/16/19 09:37 Blood Type O POSITIVE 12/16/19 01:15 Antibody Screen Negative 12/16/19 01:15 Crossmatch See Detail 12/16/19 01:15 Microbiology: Microbiology 12/16/19 09:37 Urine,Clean Catch Urine Culture - Preliminary 12/16/19 02:13 Peripheral/Venous Blood Culture - Preliminary NO GROWTH AFTER 24 HOURS 12/16/19 03:00 Peripheral/Venous Blood Culture - Preliminary NO GROWTH AFTER 24 HOURS Elder/IV: Voiding Method Bedside Commode IV Catheter Type [Right INT / Saline Lock Forearm] IV Catheter Type [Left Peripheral IV Antecubital] IV Catheter Type [Left Hand] INT / Saline Lock Active Medications - Current Medications Current Medications: Generic Name Dose Route Start Last Admin Trade Name Freq PRN Reason Stop Dose Admin Acetaminophen 650 mg 12/16/19 06:59 Tylenol PO Q4H PRN Pain MILD(1-3)/Fever >100.5/[place]OULD Famotidine 20 mg 12/16/19 10:00 12/17/19 10:29 Pepcid IV 20 mg BID WILLY Administration Hydromorphone HCl 0.25 mg 12/16/19 12:05 12/17/19 12:50 Dilaudid IV 0.25 mg Q4H PRN Administration Pain, Moderate (4-6) Cefepime HCl 2 gm in 100 mls @ 200 mls/hr 12/16/19 22:00 12/17/19 10:27 Cefepime/Ns 2 Gm/100 Ml IV 200 mls/hr Q12HR WILLY Administration Protocol Sodium Chloride 1,000 mls @ 135 mls/hr 12/16/19 12:15 12/16/19 14:20 Nacl 0.9% 1000 Ml IV 135 mls/hr DIRECT WILLY Administration Ondansetron HCl 4 mg 12/16/19 06:59 Zofran IV Q8H PRN Nausea And Vomiting Oxycodone/Acetaminophen 1 tab 12/16/19 06:59 12/17/19 17:47 Percocet 5/325 PO 1 tab Q6H PRN Administration Pain, Moderate (4-6) Sodium Chloride 10 ml 12/16/19 10:00 12/17/19 10:30 Sodium Chloride Flush Syringe 10 Ml IV 10 ml BID WILLY Administration Sodium Chloride 10 ml 12/16/19 06:59 Sodium Chloride Flush Syringe 10 Ml IV PRN PRN LINE FLUSH
[2019-12-17] MEDS: SODIUM CHLORIDE 0.9% 1000 ML 1,000 ML IV SCH (21:52)
[2019-12-18] MEDS: oxyCODONE /ACETAMINOPHEN 5-325MG TAB PO PRN ×2 (01:32→09:58)
[2019-12-18 06:10] LABS: Hematocrit 29.5 % (30.3-42.9); Hemoglobin 9.3 gm/dl (10.1-14.3); Mean Corpuscular HGB Conc 32 % (30-34); Mean Corpuscular Volume 83 fl (79-97); Platelet Count 476 K/mm3 (140-440); Red Blood Count 3.57 M/mm3 (3.65-5.03)
[2019-12-18 06:12] LABS: Basophils # (Auto) 0.1 K/mm3 (0.0-0.1); Basophils % (Auto) 0.3 % (0.0-1.8); Eosinophils # (Auto) 0.1 K/mm3 (0.0-0.4); Eosinophils % (Auto) 0.4 % (0.0-4.3); Lymphocytes # (Auto) 1.8 K/mm3 (1.2-5.4); Lymphocytes % (Auto) 9.2 % (13.4-35.0); Monocytes # (Auto) 1.3 K/mm3 (0.0-0.8); Monocytes % (Auto) 6.6 % (0.0-7.3); Red Cell Distribution Width 20.5 % (13.2-15.2)
[2019-12-18 06:29] LABS: BUN/Creatinine Ratio 23; Blood Urea Nitrogen 18 mg/dL (7-17); Calcium 10.3 mg/dL (8.4-10.2); Hemolysis Index 6
[2019-12-18] MEDS: CEFEPIME/NS 2 GM/100 ML 2 GM/100 ML BAG IV SCH ×2 (09:58→21:50)
[2019-12-18] MEDS: FAMOTIDINE 20 MG/2 ML INJ IV SCH (09:59)
[2019-12-18] MEDS: HYDROmorphone 1 MG/1 ML INJ IV PRN ×2 (12:29→20:17)
--- NOTE | 2019-12-18 17:00 | Progress Note ---
Assessment and Plan Assessment and plan: 59-year-old female hospital day 3 with sepsis complicated by urinary tract infection, hyponatremia, metabolic acidosis, uterine cancer with metastatic disease to the liver, anemia of chronic disease. Patient seen and evaluated in her room. Patient denies pain. No reported nursing events. Patient counseled regarding prognosis. Patient states that she feels better today. Patient denies pain. Patient acknowledges mild improvement in weakness after blood transfusion. Discharge planning in a.m. 12/17: Patient still very lethargic, concern for metastatic disease, Attempt to obtain [facility] on the phone to initiate transfer patient, also have reached out to COLD ROLLING COORDINATOR to see any other options. Will monitor H/H and obtain PT/OT. if stable will plan on discharge in am. (1)SIRS without organ dysfunction. No clear evidence of Sepsis Current Visit: Yes Status: Acute Plan to address problem: Sepsis protocol: CBC, chest x-ray, urinalysis, IV antibiotic therapy, serial lactic acid level, IV fluid resuscitation therapy, monitor mean arterial pressure and maintain mean arterial pressure greater than or equal to 65, monitor fluid balance. Blood culture. (2) Urinary tract infection Current Visit: Yes Status: Acute Qualifiers: Encounter type: initial encounter Plan to address problem: IV antibiotic therapy, CBC, CMP, urinalysis. (3) Symptomatic anemia secondary to Menorrhagia Current Visit: Yes Status: Acute Plan to address problem: Packed red blood cell transfusion, supportive care, repeat CBC in a.m. (4) Uterine carcinoma Current Visit: Yes Status: Acute Plan to address problem: COLD ROLLING COORDINATOR consulted, outpatient oncology follow-up. (5) Hepatic metastasis Current Visit: Yes Status: Chronic (6) Syncope (7) Hypokalemia Replace (8)DVT prophylaxis Current Visit: Yes Status: Acute Plan to address problem: SCD to bilateral lower extremities while in bed, hold anticoagulation now due to active vaginal bleeding. History Interval history: Patient seen and examined, Hospitalist Physical - Physical exam Narrative exam: General appearance: Present: mild distress, well-nourished, cachectic - EENT Eyes: Present: PERRL, EOM intact - Neck Neck: Present: supple - Respiratory Respiratory effort: normal Respiratory: bilateral: CTA - Cardiovascular Rhythm: regular Heart Sounds: Present: S1 & S2 - Extremities Extremities: no ischemia Peripheral Pulses: within normal limits - Abdominal General gastrointestinal: soft, non-tender, non-distended - Integumentary Integumentary: Present: clear, dry - Psychiatric Psychiatric: appropriate mood/affect, cooperative - Neurologic Neurologic: CNII-XII intact - Constitutional Vitals: Temp Pulse Resp BP Pulse Ox 98.2 F 95 H 20 119/71 98 12/18/19 03:31 12/18/19 09:00 12/18/19 08:00 12/18/19 03:31 12/18/19 08:00 General appearance: Present: mild distress, well-nourished, cachectic Results - Labs CBC & Chem 7: 12/18/19 05:42 12/18/19 05:42 Labs: Laboratory Last Values WBC 19.8 K/mm3 (4.5-11.0) H 12/18/19 05:42 RBC 3.57 M/mm3 (3.65-5.03) L 12/18/19 05:42 Hgb 9.3 gm/dl (10.1-14.3) L 12/18/19 05:42 Hct 29.5 % (30.3-42.9) L 12/18/19 05:42 MCV 83 fl (79-97) 12/18/19 05:42 MCH 26 pg (28-32) L 12/18/19 05:42 MCHC 32 % (30-34) 12/18/19 05:42 RDW 20.5 % (13.2-15.2) H 12/18/19 05:42 Plt Count 476 K/mm3 (140-440) H 12/18/19 05:42 Lymph % (Auto) 9.2 % (13.4-35.0) L 12/18/19 05:42 [place] % (Auto) 6.6 % (0.0-7.3) 12/18/19 05:42 Eos % (Auto) 0.4 % (0.0-4.3) 12/18/19 05:42 Baso % (Auto) 0.3 % (0.0-1.8) 12/18/19 05:42 Lymph # (Auto) 1.8 K/mm3 (1.2-5.4) 12/18/19 05:42 [place] # (Auto) 1.3 K/mm3 (0.0-0.8) H 12/18/19 05:42 Eos # (Auto) 0.1 K/mm3 (0.0-0.4) 12/18/19 05:42 Baso # (Auto) 0.1 K/mm3 (0.0-0.1) 12/18/19 05:42 Add Manual Diff Complete 12/16/19 01:06 Total Counted 200 12/16/19 01:06 Seg Neutrophils % 83.5 % (40.0-70.0) H 12/18/19 05:42 Seg Neuts % (Manual) 90.0 % (40.0-70.0) H 12/16/19 01:06 Band Neutrophils % 0 % 12/16/19 01:06 Lymphocytes % (Manual) 5.0 % (13.4-35.0) L 12/16/19 01:06 Reactive Lymphs % (Man) 0 % 12/16/19 01:06 Monocytes % (Manual) 5.0 % (0.0-7.3) 12/16/19 01:06 Eosinophils % (Manual) 0 % (0.0-4.3) 12/16/19 01:06 Basophils % (Manual) 0 % (0.0-1.8) 12/16/19 01:06 Metamyelocytes % 0 % 12/16/19 01:06 Myelocytes % 0 % 12/16/19 01:06 Promyelocytes % 0 % 12/16/19 01:06 Blast Cells % 0 % 12/16/19 01:06 Nucleated RBC % Not Reportable 12/16/19 01:06 Seg Neutrophils # 16.5 K/mm3 (1.8-7.7) H 12/18/19 05:42 Seg Neutrophils # Man 22.5 K/mm3 (1.8-7.7) H 12/16/19 01:06 Band Neutrophils # 0.0 K/mm3 12/16/19 01:06 Lymphocytes # (Manual) 1.3 K/mm3 (1.2-5.4) 12/16/19 01:06 Abs React Lymphs (Man) 0.0 K/mm3 12/16/19 01:06 Monocytes # (Manual) 1.3 K/mm3 (0.0-0.8) H 12/16/19 01:06 Eosinophils # (Manual) 0.0 K/mm3 (0.0-0.4) 12/16/19 01:06 Basophils # (Manual) 0.0 K/mm3 (0.0-0.1) 12/16/19 01:06 Metamyelocytes # 0.0 K/mm3 12/16/19 01:06 Myelocytes # 0.0 K/mm3 12/16/19 01:06 Promyelocytes # 0.0 K/mm3 12/16/19 01:06 Blast Cells # 0.0 K/mm3 12/16/19 01:06 WBC Morphology Not Reportable 12/16/19 01:06 Hypersegmented Neuts Not Reportable 12/16/19 01:06 Hyposegmented Neuts Not Reportable 12/16/19 01:06 Hypogranular Neuts Not Reportable 12/16/19 01:06 Smudge Cells Not Reportable 12/16/19 01:06 Toxic Granulation Not Reportable 12/16/19 01:06 Toxic Vacuolation Not Reportable 12/16/19 01:06 Dohle Bodies Not Reportable 12/16/19 01:06 Pelger-Huet Anomaly Not Reportable 12/16/19 01:06 Mohan Rods Not Reportable 12/16/19 01:06 Platelet Estimate Consistent w auto 12/16/19 01:06 Clumped Platelets Not Reportable 12/16/19 01:06 Plt Clumps, EDTA Not Reportable 12/16/19 01:06 Large Platelets Not Reportable 12/16/19 01:06 Giant Platelets Not Reportable 12/16/19 01:06 Platelet Satelliting Not Reportable 12/16/19 01:06 Plt Morphology Comment Not Reportable 12/16/19 01:06 RBC Morphology Not Reportable 12/16/19 01:06 Dimorphic RBCs Not Reportable 12/16/19 01:06 Polychromasia Not Reportable 12/16/19 01:06 Hypochromasia 1+ 12/16/19 01:06 Poikilocytosis Not Reportable 12/16/19 01:06 Anisocytosis 1+ 12/16/19 01:06 Microcytosis Not Reportable 12/16/19 01:06 Macrocytosis Not Reportable 12/16/19 01:06 Spherocytes Not Reportable 12/16/19 01:06 Pappenheimer Bodies Not Reportable 12/16/19 01:06 Sickle Cells Not Reportable 12/16/19 01:06 Target Cells Not Reportable 12/16/19 01:06 Tear Drop Cells Not Reportable 12/16/19 01:06 Ovalocytes Not Reportable 12/16/19 01:06 Helmet Cells Not Reportable 12/16/19 01:06 [place] Bodies Not Reportable 12/16/19 01:06 [place] Rings Not Reportable 12/16/19 01:06 Eli Cells Not Reportable 12/16/19 01:06 Bite Cells Not Reportable 12/16/19 01:06 Crenated Cell Not Reportable 12/16/19 01:06 Elliptocytes Not Reportable 12/16/19 01:06 Acanthocytes (Spur) Not Reportable 12/16/19 01:06 Rouleaux Not Reportable 12/16/19 01:06 Hemoglobin C Crystals Not Reportable 12/16/19 01:06 Schistocytes Not Reportable 12/16/19 01:06 Malaria parasites Not Reportable 12/16/19 01:06 Saurav Bodies Not Reportable 12/16/19 01:06 Hem Pathologist Commnt No 12/16/19 01:06 Sodium 137 mmol/L (137-145) 12/18/19 05:42 Potassium 3.5 mmol/L (3.6-5.0) L 12/18/19 05:42 Chloride 105.4 mmol/L (98-107) 12/18/19 05:42 Carbon Dioxide 22 mmol/L (22-30) 12/18/19 05:42 Anion Gap 13 mmol/L 12/18/19 05:42 BUN 18 mg/dL (7-17) H 12/18/19 05:42 Creatinine 0.8 mg/dL (0.6-1.2) 12/18/19 05:42 Estimated GFR > 60 ml/min 12/18/19 05:42 BUN/Creatinine Ratio 23 % 12/18/19 05:42 Glucose 73 mg/dL (65-100) 12/18/19 05:42 Hemoglobin A1c 5.4 % (4-6) 12/16/19 04:33 Lactic Acid 1.20 mmol/L (0.7-2.0) 12/17/19 02:20 Calcium 10.3 mg/dL (8.4-10.2) H 12/18/19 05:42 Urine Color Red (Yellow) 12/16/19 09:37 Urine Turbidity Clear (Clear) 12/16/19 09:37 Urine pH 6.0 (5.0-7.0) 12/16/19 09:37 Ur Specific [place] 1.055 (1.003-1.030) H 12/16/19 09:37 Urine Protein 100 mg/dl mg/dL (Negative) 12/16/19 09:37 Urine Glucose (UA) Neg mg/dL (Negative) 12/16/19 09:37 Urine Ketones Neg mg/dL (Negative) 12/16/19 09:37 Urine Blood Lg (Negative) 12/16/19 09:37 Urine Nitrite Neg (Negative) 12/16/19 09:37 Urine Bilirubin Neg (Negative) 12/16/19 09:37 Urine Urobilinogen < 2.0 mg/dL (<2.0) 12/16/19 09:37 Ur Leukocyte Esterase Lg (Negative) 12/16/19 09:37 Urine WBC (Auto) 99.0 /HPF (0.0-6.0) H 12/16/19 09:37 Urine RBC (Auto) > 182.0 /HPF (0.0-6.0) 12/16/19 09:37 U Epithel Cells (Auto) 1.0 /HPF (0-13.0) 12/16/19 09:37 Urine WBC Clumps 1+ /HPF 12/16/19 09:37 Blood Type O POSITIVE 12/16/19 01:15 Antibody Screen Negative 12/16/19 01:15 Crossmatch See Detail 12/16/19 01:15 Microbiology: Microbiology 12/16/19 09:37 Urine,Clean Catch Urine Culture - Final 12/16/19 02:13 Peripheral/Venous Blood Culture - Preliminary NO GROWTH AFTER 48 HOURS 12/16/19 03:00 Peripheral/Venous Blood Culture - Preliminary NO GROWTH AFTER 48 HOURS [place]/IV: Voiding Method Bedside Commode IV Catheter Type [Right INT / Saline Lock Forearm] IV Catheter Type [Left Peripheral IV Antecubital] IV Catheter Type [Left Hand] INT / Saline Lock Active Medications - Current Medications Current Medications: Generic Name Dose Route Start Last Admin Trade Name Freq PRN Reason Stop Dose Admin Acetaminophen 650 mg 12/16/19 06:59 Tylenol PO Q4H PRN Pain MILD(1-3)/Fever >100.5/GOULD Famotidine 20 mg 12/18/19 22:00 Pepcid PO BID WILLY Hydromorphone HCl 0.25 mg 12/16/19 12:05 12/18/19 12:29 Dilaudid IV 0.25 mg Q4H PRN Administration Pain, Moderate (4-6) Cefepime HCl 2 gm in 100 mls @ 200 mls/hr 12/16/19 22:00 12/18/19 09:58 Cefepime/Ns 2 Gm/100 Ml IV 200 mls/hr Q12HR WILLY Administration Protocol Sodium Chloride 1,000 mls @ 135 mls/hr 12/16/19 12:15 12/17/19 21:52 Nacl 0.9% 1000 Ml IV 135 mls/hr DIRECT WILLY Administration Ondansetron HCl 4 mg 12/16/19 06:59 Zofran IV Q8H PRN Nausea And Vomiting Oxycodone/Acetaminophen 1 tab 12/16/19 06:59 12/18/19 09:58 Percocet 5/325 PO 1 tab Q6H PRN Administration Pain, Moderate (4-6) Sodium Chloride 10 ml 12/16/19 10:00 12/18/19 09:59 Sodium Chloride Flush Syringe 10 Ml IV 10 ml BID WILLY Administration Sodium Chloride 10 ml 12/16/19 06:59 Sodium Chloride Flush Syringe 10 Ml IV PRN PRN LINE FLUSH
[2019-12-18] MEDS: FAMOTIDINE 20 MG TAB PO SCH (21:50)
[2019-12-19] MEDS: oxyCODONE /ACETAMINOPHEN 5-325MG TAB PO PRN ×3 (00:11→12:28)
[2019-12-19 06:45] LABS: Hematocrit 29.6 % (30.3-42.9); Hemoglobin 9.6 gm/dl (10.1-14.3); Mean Corpuscular HGB Conc 32 % (30-34); Mean Corpuscular Volume 83 fl (79-97); Platelet Count 474 K/mm3 (140-440); Red Blood Count 3.59 M/mm3 (3.65-5.03); Red Cell Distribution Width 19.7 % (13.2-15.2)
[2019-12-19 07:00] LABS: Blood Urea Nitrogen 15 mg/dL (7-17); Calcium 10.4 mg/dL (8.4-10.2); Hemolysis Index 11
[2019-12-19 07:14] LABS: BUN/Creatinine Ratio 21
[2019-12-19] MEDS ORDERED: POTASSIUM CHLORIDE ER 20 MEQ TAB PO SCH (08:00)
[2019-12-19] MEDS ORDERED: SODIUM CHLORIDE 0.9% 1000 ML 1,000 ML IV ONE (08:00)
[2019-12-19] MEDS: CEFEPIME/NS 2 GM/100 ML 2 GM/100 ML BAG IV SCH (10:00)
[2019-12-19] MEDS: FAMOTIDINE 20 MG TAB PO SCH (10:00)
--- NOTE | 2019-12-19 10:04 | Discharge Summary ---
Providers - Providers Date of Admission: 12/17/19 11:12 Attending physician: BRENNON TY MD 12/16/19 05:02 Consult to Physician [CONS] Stat Comment: Consulting Provider: MARLEN DOWD Physician Instructions: Reason For Exam: uterine mass, menometrorrhagia 12/18/19 17:07 Occupational Therapy Evaluate and Treat [CONS] Routine Comment: Reason For Exam: DEBILITY Physical Therapy Evaluation and Treat [CONS] Routine Comment: Reason For Exam: DEBILITY Primary care physician: ANA LOFTON Hospitalization Reason for admission: Uterine cancer symptomatic anemia Condition: Fair Hospital course: 59-year-old female hospital day 3 with sepsis complicated by urinary tract infection, hyponatremia, metabolic acidosis, uterine cancer with metastatic disease to the liver, anemia of chronic disease. Patient seen and evaluated in her room. Patient denies pain. No reported nursing events. Patient counseled regarding prognosis. Patient states that she feels better today. Patient denies pain. Patient acknowledges mild improvement in weakness after blood transfusion. Discharge planning in a.m. 12/17: Patient still very lethargic, concern for metastatic disease, Attempt to obtain [facility] on the phone to initiate transfer patient, also have reached out to INDUSTRIAL ENGINEER to see any other options. Will monitor H/H and obtain PT/OT. if stable will plan on discharge in am. 12/18: Patient seen and examined today clinically improved no fever noted. I discussed with her my discussion with the INDUSTRIAL ENGINEER at our facility who recommends patient can be discharged and to follow-up immediately at [facility] for her INDUSTRIAL ENGINEER oncologist. I also discussed with the patient spouse Mr. Michael Angulo and he verbalized understanding. I discussed her findings. Her hemoglobin has remained stable. She will be discharged with home health for generalized weakness. Prior to DC fluid will be given with Lasix for the hyperkalemia that is noted. I also recommended retesting outpatient. (1)SIRS without organ dysfunction. No clear evidence of Sepsis Current Visit: Yes Status: Acute Plan to address problem: Sepsis protocol: CBC, chest x-ray, urinalysis, IV antibiotic therapy, serial lactic acid level, IV fluid resuscitation therapy, monitor mean arterial pressure and maintain mean arterial pressure greater than or equal to 65, monitor fluid balance. Blood culture. (2) Urinary tract infection Current Visit: Yes Status: Acute Qualifiers: Encounter type: initial encounter Plan to address problem: IV antibiotic therapy, CBC, CMP, urinalysis. (3) Symptomatic anemia secondary to Menorrhagia Current Visit: Yes Status: Acute Plan to address problem: Packed red blood cell transfusion, supportive care, repeat CBC in a.m. (4) Uterine carcinoma Current Visit: Yes Status: Acute Plan to address problem: INDUSTRIAL ENGINEER consulted, outpatient oncology follow-up. (5) Hepatic metastasis Current Visit: Yes Status: Chronic (6) Syncope (7) Hypokalemia Replace (8) hypercalcemia Disposition: DC/[place]-06 HOME UNDER HOME [facility] Time spent for discharge: 35 minutes Core Measure Documentation - Palliative Care Palliative Care/ Comfort Measures: Not Applicable - Core Measures Any of the following diagnoses?: none Exam - Physical Exam Narrative exam: General appearance: Present: No distress, well-nourished, temporal wasting - EENT Eyes: Present: PERRL, EOM intact - Neck Neck: Present: supple - Respiratory Respiratory effort: normal Respiratory: bilateral: CTA - Cardiovascular Rhythm: regular Heart Sounds: Present: S1 & S2 - Extremities Extremities: no ischemia Peripheral Pulses: within normal limits - Abdominal General gastrointestinal: soft, non-tender, non-distended - Integumentary Integumentary: Present: clear, dry - Psychiatric Psychiatric: appropriate mood/affect, cooperative - Neurologic Neurologic: CNII-XII intact - Constitutional Vitals: Temp Pulse Resp BP Pulse Ox 97.5 F L 111 H 17 148/96 99 12/19/19 03:32 12/19/19 03:32 12/19/19 03:32 12/19/19 03:32 12/19/19 03:32 Plan Activity: advance as tolerated, fall precautions Diet: low fat Special Instructions: record daily weights, record daily BP diary Additional Instructions: Recommended to follow-up with INDUSTRIAL ENGINEER oncologist at [facility] Plan of Treatment[phone] Follow up with: ANA LOFTON MD [Primary Care Provider] - 7 Days Prescriptions: Famotidine [Pepcid] 20 mg PO DAILY #30 tablet oxyCODONE /ACETAMINOPHEN [Percocet 5/325 mg] 1 tab PO Q6H PRN #20 tablet PRN Reason: Pain, Moderate (4-6)
[2019-12-19 10:06] VITALS: BP 160/97
== END 2019-12-19 15:56 | disposition home health service (06) | DRG 755 ==
LOC: ED 00:13 → 4A 05:09 → OBSVTOIN 12-17 11:12 → MERGE 12-17 11:12
PROVIDERS: ADMIT Internal Medicine; ATTEND Internal Medicine
PROC: 30233N1 Transfusion of Nonautologous Red Blood Cells into Peripheral Vein, Percutaneous Approach (ICD-10-PCS; principal; 2019-12-16)
DX: C55 Malignant neoplasm of uterus, part unspecified (principal); N39.0 Urinary tract infection, site not specified; E87.1 Hypo-osmolality and hyponatremia; R65.10 Systemic inflammatory response syndrome (SIRS) of non-infectious origin without acute organ dysfunction; E87.2 Acidosis; R64 Cachexia; C78.7 Secondary malignant neoplasm of liver and intrahepatic bile duct; I95.1 Orthostatic hypotension; N85.8 Other specified noninflammatory disorders of uterus; I10 Essential (primary) hypertension; J45.909 Unspecified asthma, uncomplicated; N92.1 Excessive and frequent menstruation with irregular cycle; E87.6 Hypokalemia; E83.52 Hypercalcemia; D63.0 Anemia in neoplastic disease; Z88.5 Allergy status to narcotic agent; Z88.2 Allergy status to sulfonamides; Z68.25 Body mass index [BMI] 25.0-25.9, adult; Z90.49 Acquired absence of other specified parts of digestive tract
CPT/HCPCS: 36415; 71045; 71275; 74177; 80048; 81001; 82140; 83036; 85007; 85014; 85018; 85025; 85027; 86850; 86900; 86901; 86920; 87040; 87086; 93005; 96365; 96375; G0378; J0692; J1170; J2270; J2405; J2543; J7030; J7040; P9016; Q9967